=== PATIENT | male | born 1960 | race Caucasian/White ===

== ENCOUNTER 2017-12-27 14:14 | Inpatient (IN) | payer BC ==
[~2017-12-27] VITALS: Ht 170.2 cm; Wt 79.9 kg
[2017-12-27 16:30] VITALS: BP 138/93
[2017-12-27] MEDS ORDERED: ACETAMINOPHEN 325 MG TABLET. PO PRN (17:15)
[2017-12-27] MEDS ORDERED: CALCIUM CARBONATE 500 MG TAB.CHEW PO PRN (17:15)
[2017-12-27] MEDS ORDERED: MORPHINE SULFATE 2 MG/ML VIAL. IV PRN (17:15)
[2017-12-27] MEDS ORDERED: fentaNYL PF VIAL 100 MCG/2 ML VIAL IV PRN (17:15)
[2017-12-27] MEDS: POTASSIUM CL 40MEQ D5-0.45NACL 1,000 ML IV SCH (18:05)
[2017-12-27] MEDS: PANTOPRAZOLE IV PUSH 40 MG VIAL. IVP SCH (18:09)
[2017-12-27] MEDS: ONDANSETRON PF 4 MG/2 ML VIAL. IV PRN (18:17)
[2017-12-27 19:00] VITALS: BP 96/68
[2017-12-27] MEDS ORDERED: LISI1TAB7 PO (19:24)
[2017-12-27] MEDS ORDERED: ZOLP12.54 PO (19:24)
[2017-12-27 23:00] VITALS: BP 104/65
[2017-12-27] MEDS: ZOLPIDEM 5 MG TABLET. PO PRN (23:44)
[2017-12-27] MEDS: oxyCODONE IR 5 MG TABLET PO PRN (23:52)
[2017-12-28 03:00] VITALS: BP 117/77
[2017-12-28 05:23] LABS: BASO # 0.1 x10^3/uL (0.0-0.2); BASO % 1 % (0-3); EOS # 0.2 x10^3/uL (0.0-0.7); EOS % 2 % (0-3); HEMOGLOBIN 15.7 g/dL (13.0-17.5); LYMPH # 2.5 x10^3/uL (1.0-4.8); LYMPH % 25 % (24-48); MEAN CORPUSCULAR HEMOGLOBIN 30 pg (25-35); MEAN CORPUSCULAR HGB CONC 34 g/dL (31-37); MEAN CORPUSCULAR VOLUME 86 fL (79-100); MONO # 1.1 x10^3/uL (0.0-1.1); MONO % 11 % (0-9); NEUT % 61 % (31-73); PLATELET COUNT 299 x10^3/uL (140-400); RED BLOOD COUNT 5.33 x10^6/uL (4.30-5.70); RED CELL DISTRIBUTION WIDTH 13.6 % (11.5-14.5); WHITE BLOOD COUNT 9.7 x10^3/uL (4.0-11.0)
[2017-12-28 05:25] LABS: CALCIUM 9.3 mg/dL (8.5-10.1); GFR 76.7; POTASSIUM 3.8 mmol/L (3.5-5.1)
[2017-12-28 05:34] LABS: PROTHROMBIN TIME PATIENT 13.2 SEC (11.7-14.0)
[2017-12-28] MEDS: POTASSIUM CL 40MEQ D5-0.45NACL 1,000 ML IV SCH ×3 (05:35→23:30)
[2017-12-28 07:00] VITALS: BP 109/70
[2017-12-28] MEDS: PANTOPRAZOLE IV PUSH 40 MG VIAL. IVP SCH (08:44)
--- NOTE | 2017-12-28 09:01 | PDOC2 ---
MODESTO GENTILE ACTIVITIES COORDINATOR 12/28/17 0901: CONSULT Date of Consult Date of Consult DATE: 12/28/17 TIME: 08:54 Reason for Consult Reason for Consult: bowel obstruction Referring Physician Referring Physician: ER Identification/Chief Complaint Chief Complaint abdominal pain Source Source: Chart review, Patient History of Present Illness Reason for Visit: Reports Saturday had abdominal pain, bloating, and nausea. Last BM small on . Small amount of flatus now. No significant PO intake since . History of right colon resection, primary hernia repair. Long standing ventral hernia, typically does not cause any problems. Past Medical History Cardiovascular: HTN Heme/Onc: Cancer (skin) Past Surgical History Past Surgical History: Colon Resection Family History Family History: Other (noncontributory to current illness ) Social History No ALCOHOL: rare Drugs: None Lives: Alone Current Medications Current Medications Current Medications Potassium Chloride/Dextrose/ Sod Cl 1,000 ml @ 100 mls/hr Q10H IV Last administered on 12/28/17at 05:35; Start 12/27/17 at 17:30 Ondansetron HCl (Zofran) 4 mg PRN Q6HRS PRN IV NAUSEA/VOMITING, 1ST CHOICE Last administered on 12/27/17at 18:17; Start 12/27/17 at 17:15 Prochlorperazine Edisylate (Compazine) 10 mg PRN Q6HRS PRN IV NAUSEA/VOMITING, 2ND CHOICE; Start 12/27/17 at 17:15 Calcium Carbonate/ Glycine (Tums) 500 mg PRN Q3HRS PRN PO UPSET STOMACH; Start 12/27/17 at 17:15 Zolpidem Tartrate (Ambien) 5 mg PRN QHS PRN PO INSOMNIA, MAY REPEAT IN 1HR Last administered on 12/27/17at 23:44; Start 12/27/17 at 17:15 Oxycodone HCl (Roxicodone) 5 mg PRN Q3HRS PRN PO BREAKTHROUGH PAIN Last administered on 12/27/17at 23:52; Start 12/27/17 at 17:15 Morphine Sulfate (Morphine Sulfate) 2 mg PRN Q2HR PRN IV MODERATE PAIN Last administered on 12/28/17at 08:44; Start 12/27/17 at 17:15 Acetaminophen (Tylenol) 650 mg PRN Q6HRS PRN PO Headaches, Temp > 101.5F; Start 12/27/17 at 17:15 Pantoprazole Sodium (PROTONIX VIAL for IV PUSH) 40 mg DAILYAC IVP Last administered on 12/28/17at 08:44; Start 12/27/17 at 18:00 Fentanyl Citrate (Fentanyl 2ml Vial) 50 mcg PRN Q2HR PRN IV SEVERE PAIN Last administered on 12/27/17at 18:16; Start 12/27/17 at 17:15 Active Scripts Active Reported Lisinopril-Hctz 20-25 Mg Tab (Lisinopril/Hydrochlorothiazide) 1 Each Tablet 1 Tab PO DAILY Zolpidem Tartrate Er (Zolpidem Tartrate) 12.5 Mg Tab.mphase 1 Tab PO QHS Allergies Allergies: Coded Allergies: Sulfa (Sulfonamide Antibiotics) (Verified Allergy, Intermediate, Swelling , 12/27/17) TOPICAL ROS General: No: Chills, Other (fevers) PSYCHOLOGICAL ROS: No: Anxiety, Depression Eyes: No Blurry vision, No Double vision HEENT: No: Heacaches, Sore Throat Hematological and Lymphatic: No: Bleeding Problems, Blood Clots Respiratory: No: Cough, SOB with excertion Cardiovascular: No Chest Pain, No Palpitations Gastrointestinal: Yes Other (see hpi) Genitourinary: No Dysuria, No Retention Musculoskeletal: No Joint Pain, No Muscle Pain Neurological: No Impaired Coord/balance, No Memory Loss Skin: No Pruritus, No Rash Physical Exam General: Alert, Oriented X3, Cooperative, No acute distress HEENT: PERRLA, Mucous membr. moist/pink Lungs: Clear to auscultation, Normal air movement Heart: Regular rate, Normal S1, Normal S2, No murmurs Abdomen: Soft, Other (mildly tender, large VIH, partially reducible, large midline scar) Extremities: No clubbing, No cyanosis Skin: No rashes, No breakdown Neuro: Normal speech, Strength at 5/5 X4 ext Psych/Mental Status: Mental status NL, Mood NL MUSCULOSKELETAL: No joint tenderness, No deformity Vitals VITALS Vital Signs Date Time Temp Pulse Resp B/P (MAP) Pulse Ox O2 Delivery O2 Flow Rate FiO2 12/28/17 08:44 Room Air 12/28/17 07:00 97.9 70 16 109/70 (83) 93 97.9 Labs Labs Laboratory Tests Test 12/28/17 04:30 12/28/17 04:40 White Blood Count 9.7 x10^3/uL (4.0-11.0) Red Blood Count 5.33 x10^6/uL (4.30-5.70) Hemoglobin 15.7 g/dL (13.0-17.5) Hematocrit 46.0 % (39.0-53.0) Mean Corpuscular Volume 86 fL (79-100) Mean Corpuscular Hemoglobin 30 pg (25-35) Mean Corpuscular Hemoglobin Concent 34 g/dL (31-37) Red Cell Distribution Width 13.6 % (11.5-14.5) Platelet Count 299 x10^3/uL (140-400) Neutrophils (%) (Auto) 61 % (31-73) Lymphocytes (%) (Auto) 25 % (24-48) Monocytes (%) (Auto) 11 % (0-9) Eosinophils (%) (Auto) 2 % (0-3) Basophils (%) (Auto) 1 % (0-3) Neutrophils # (Auto) 6.0 x10^3uL (1.8-7.7) Lymphocytes # (Auto) 2.5 x10^3/uL (1.0-4.8) Monocytes # (Auto) 1.1 x10^3/uL (0.0-1.1) Eosinophils # (Auto) 0.2 x10^3/uL (0.0-0.7) Basophils # (Auto) 0.1 x10^3/uL (0.0-0.2) Prothrombin Time 13.2 SEC (11.7-14.0) Prothromb Time International Ratio 1.1 (0.8-1.1) Sodium Level 139 mmol/L (136-145) Potassium Level 3.8 mmol/L (3.5-5.1) Chloride Level 102 mmol/L (98-107) Carbon Dioxide Level 28 mmol/L (21-32) Anion Gap 9 (6-14) Blood Urea Nitrogen 11 mg/dL (8-26) Creatinine 1.0 mg/dL (0.7-1.3) Estimated GFR (Cockcroft-Gault) 76.7 Glucose Level 99 mg/dL (70-99) Calcium Level 9.3 mg/dL (8.5-10.1) Laboratory Tests Test 12/28/17 04:30 12/28/17 04:40 White Blood Count 9.7 x10^3/uL (4.0-11.0) Red Blood Count 5.33 x10^6/uL (4.30-5.70) Hemoglobin 15.7 g/dL (13.0-17.5) Hematocrit 46.0 % (39.0-53.0) Mean Corpuscular Volume 86 fL (79-100) Mean Corpuscular Hemoglobin 30 pg (25-35) Mean Corpuscular Hemoglobin Concent 34 g/dL (31-37) Red Cell Distribution Width 13.6 % (11.5-14.5) Platelet Count 299 x10^3/uL (140-400) Neutrophils (%) (Auto) 61 % (31-73) Lymphocytes (%) (Auto) 25 % (24-48) Monocytes (%) (Auto) 11 % (0-9) Eosinophils (%) (Auto) 2 % (0-3) Basophils (%) (Auto) 1 % (0-3) Neutrophils # (Auto) 6.0 x10^3uL (1.8-7.7) Lymphocytes # (Auto) 2.5 x10^3/uL (1.0-4.8) Monocytes # (Auto) 1.1 x10^3/uL (0.0-1.1) Eosinophils # (Auto) 0.2 x10^3/uL (0.0-0.7) Basophils # (Auto) 0.1 x10^3/uL (0.0-0.2) Prothrombin Time 13.2 SEC (11.7-14.0) Prothromb Time International Ratio 1.1 (0.8-1.1) Sodium Level 139 mmol/L (136-145) Potassium Level 3.8 mmol/L (3.5-5.1) Chloride Level 102 mmol/L (98-107) Carbon Dioxide Level 28 mmol/L (21-32) Anion Gap 9 (6-14) Blood Urea Nitrogen 11 mg/dL (8-26) Creatinine 1.0 mg/dL (0.7-1.3) Estimated GFR (Cockcroft-Gault) 76.7 Glucose Level 99 mg/dL (70-99) Calcium Level 9.3 mg/dL (8.5-10.1) Assessment/Plan Assessment/Plan abdominal pain bowel obstruction, Ct concern related to VIH d/w Dr Morrell, plans for surgery today IVONNE MORRELL MD 12/28/17 1703: CONSULT Assessment/Plan Assessment/Plan Pt seen and examined. Agree with Ms. Gentile's note Pt with one week history of abd pain, better now hernia able to be reduced at bedside d/w pt R/R/B/A of observation versus surgical repair. Pt favors surgery. R/B/A d/w pt. Risks, including, but not limited to: bleeding, infection, damage to surrounding structures, risk of anesthesia, risk of recurrence. He appears to understand, his questions are answered and he elects to proceed. Thanks for consult! MODESTO GENTILE APRN Dec 28, 2017 09:01 IVONNE MORRELL MD Dec 28, 2017 17:03
[2017-12-28] MEDS: ONDANSETRON PF 4 MG/2 ML VIAL. IV PRN (09:04)
[2017-12-28 11:00] VITALS: BP 112/74
--- NOTE | 2017-12-28 13:34 | HP ---
ADMIT DATE: 12/28/2017 CHIEF COMPLAINT: Abdominal pain. 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 Basically, he presented with abdominal pain. He went to [facility]. He had a CAT scan there apparently showing obstructive hernia. The patient has now been admitted here. I think the plan is for him to go to surgery this afternoon with Dr. Morrell. PAST MEDICAL HISTORY: Zeeshan-León syndrome with several abdominal surgeries. ALLERGIES: SULFA. FAMILY HISTORY: Hypertension. SOCIAL HISTORY: He is retired. He does not drink, smoke or take drugs. MEDICATIONS: Reviewed. Please refer to the MRAD. REVIEW OF SYSTEMS: GENERAL: No history of weight change, weakness or fevers. SKIN: No bruising, hair changes or rashes. EYES: No blurred, double or loss of vision. NOSE AND THROAT: No history of nosebleeds, hoarseness or sore throat. HEART: No history of palpitations, chest pain or shortness of breath on exertion. LUNGS: Denies cough, hemoptysis, wheezing or shortness of breath. GASTROINTESTINAL: He complains of abdominal pain. GENITOURINARY: No history of frequency, urgency, hesitancy or nocturia. NEUROLOGIC: Denies history of numbness, tingling, tremor or weakness. PSYCHIATRIC: No history of panic, anxiety or depression. ENDOCRINE: No history of heat or cold intolerance, polyuria or polydipsia. EXTREMITIES: Denies muscle weakness, joint pain, pain on walking or stiffness. PHYSICAL EXAMINATION: VITAL SIGNS: Temperature afebrile, pulse 80, respirations 18, blood pressure 109/70. GENERAL: He is alert, cooperative, very talkative. HEART: Normal S1, S2. LUNGS: Clear. ABDOMEN: Soft, distended and tender, multiple scars. ENDOCRINE: No thyromegaly. LYMPHATICS: No cervical nodes. HEMATOPOIETIC: No bruising. LABORATORY DATA: Hematology is normal. Electrolytes are normal. ASSESSMENT AND PLAN: Bowel obstruction and hernia. The patient has been admitted. We have consulted General Surgery. I believe he is scheduled for surgery this afternoon. For now, he is n.p.o., p.r.n. antiemetics, p.r.n. narcotics, IV fluids, home meds. COCO GOLDBERG DO DR: Buddy JOB#: [id number] / [id number]
[2017-12-28 15:00] VITALS: BP 115/78
[2017-12-28] MEDS ORDERED: BUPIVACAINE-EPI 0.5%-1:200000 50 ML VIAL. ONE (16:44)
[2017-12-28] MEDS ORDERED: SUCCINYLCHOLINE 200 MG/10 ML VIAL. ONE (16:55)
[2017-12-28] MEDS ORDERED: ROCURONIUM 50 MG/5 ML VIAL. ONE ×2 (16:55→19:31)
[2017-12-28] MEDS ORDERED: DEXAMETHASONE SOD PHOS 20 MG/5 ML VIAL. ONE (16:56)
[2017-12-28] MEDS ORDERED: ONDANSETRON PF 4 MG/2 ML VIAL. ONE (16:56)
[2017-12-28] MEDS ORDERED: ePHEDrine PF IN SALINE 50 MG/5 ML DISP.SYRIN IV ONE (16:56)
[2017-12-28] MEDS ORDERED: PHENYLEPHRINE in 0.9% NACL PF 1 MG/10 ML SYRINGE. IV ONE (16:56)
[2017-12-28] MEDS ORDERED: fentaNYL PF VIAL 100 MCG/2 ML VIAL ONE ×3 (16:58→21:09)
[2017-12-28] MEDS ORDERED: MIDAZOLAM HCL/PF 2 MG/2 ML VIAL. ONE (16:58)
[2017-12-28] MEDS ORDERED: GLYCOPYRROLATE 1 MG/5 ML VIAL. ONE (18:18)
[2017-12-28] MEDS ORDERED: NEOSTIGMINE METHYLSULFATE 5 MG/5 ML SYRINGE. ONE (18:18)
[2017-12-28] MEDS ORDERED: PROPOFOL 20 ML IV ONE (19:33)
[2017-12-28] MEDS ORDERED: ALBUMIN HUMAN 5% 500 ML IV ONE (20:27)
[2017-12-28] MEDS: DOCUSATE SODIUM 100 MG CAPSULE. PO SCH (21:00)
[2017-12-28] MEDS: ENOXAPARIN 40 MG/0.4 ML SYRINGE. SQ SCH (21:00)
[2017-12-28] MEDS ORDERED: IV RINGERS,LACTATED 1000ML 1,000 ML IV SCH ×2 (21:00→21:31)
[2017-12-28] MEDS ORDERED: NALOXONE 0.4 MG/ML VIAL. IV PRN (21:00)
[2017-12-28] MEDS ORDERED: IV NORMAL SALINE 1000ML BAG 1,000 ML IV SCH (21:00)
[2017-12-28] MEDS ORDERED: 0.9 % SODIUM CHLORIDE 10 ML DISP.SYRIN. IV PRN (21:00)
[2017-12-28] MEDS ORDERED: ONDANSETRON PF 4 MG/2 ML VIAL. IV PRN ×2 (21:00→21:45)
--- NOTE | 2017-12-28 21:10 | PDOC4 ---
OPERATIVE NOTE Date: Date: Dec 28, 2017 Pre-Op Diagnosis: Incarcerated ventral incisional hernia Post-Op Diagnosis: same Procedure Performed: Ventral incisional hernia, extensive lysis of adhesions Surgeon: Willian Licona Anesthesia Type: GETA Blood Loss: 300 Specimans Obtained: none Findings: Complex incisional hernia, extensive adhesions, previous right colon resection with large mesenteric defect, dilated proximal small bowel Complications: none Operative Note: After obtaining informed consent, patient was taken to OR, induced under GETA and prepped in the usual fashion. Previous scar was excised using cautery. Large hernia encountered and hernia sac entered. Extensive adhesion of the small bowel was noted into the complex hernia. An extensive lysis of adhesion was performed which was the vast majority of the operative time. Ultimately, the small bowel was explored. It was noted to be dilated proximally but decompressed distally. No injury was noted. Adhesiolysis resolved the obstruction. Evidence of previous right colectomy. Mesenteric defect was large and the stapled anastomosis was noted to be patent and functional, but appeared to with the immediately proximal small bowel coming through the defect. Attempts at rolling the bowel to line it up was unsuccessful. As such , the mesenteric defect could not be closed without revision of the anastomosis. Given the increased morbidity of this, and the complicating nature of the hernia, this was not in the patient best interest. Small bowel was returned to abdominal cavity with omentum overlying. Fascia repaired with 0 PDS. Allomax mesh was placed over this and tacked in place with 0 vicryl. Skin repaired with 0 vicryl, 3 0 vicryl 4 0 monocryl. Dressing applied. All counts correct. No immediate complications. Patient tolerated procedure well and sent to PACU in a stable condition. IVONNE LICONA MD Dec 28, 2017 21:10
[2017-12-28] MEDS: PROCHLORPERAZINE 10 MG/2 ML VIAL. IV PRN (21:27)
[2017-12-28] MEDS: MORPHINE SULFATE/PF 30 ML IV PRN (21:29)
[2017-12-28] MEDS: fentaNYL PF VIAL 100 MCG/2 ML VIAL IV PRN ×2 (21:34→22:04)
[2017-12-28] MEDS ORDERED: LIDOCAINE 1% PF 2 ML VIAL. ID PRN (21:45)
[2017-12-28] MEDS ORDERED: fentaNYL PF VIAL 100 MCG/2 ML VIAL IV PRN (21:45)
[2017-12-28] MEDS ORDERED: HYDROmorphone 2 MG/ML VIAL IV PRN (21:45)
[2017-12-28] MEDS ORDERED: PROCHLORPERAZINE 10 MG/2 ML VIAL. IV PRN (21:45)
[2017-12-28] MEDS ORDERED: MORPHINE SULFATE 2 MG/ML VIAL. IV PRN (21:45)
[2017-12-28 23:00] VITALS: BP 122/71
[2017-12-29 03:00] VITALS: BP 116/67
[2017-12-29 06:25] LABS: BASO % 0 % (0-3); EOS % 0 % (0-3); HEMATOCRIT 40.7 % (39.0-53.0); HEMOGLOBIN 13.7 g/dL (13.0-17.5); LYMPH # 0.4 x10^3/uL (1.0-4.8); LYMPH % 3 % (24-48); MEAN CORPUSCULAR HEMOGLOBIN 29 pg (25-35); MEAN CORPUSCULAR HGB CONC 34 g/dL (31-37); MEAN CORPUSCULAR VOLUME 87 fL (79-100); MONO # 1.6 x10^3/uL (0.0-1.1); MONO % 12 % (0-9); NEUT % 85 % (31-73); PLATELET COUNT 242 x10^3/uL (140-400); RED BLOOD COUNT 4.69 x10^6/uL (4.30-5.70); RED CELL DISTRIBUTION WIDTH 13.4 % (11.5-14.5)
[2017-12-29 06:41] LABS: CALCIUM 8.5 mg/dL (8.5-10.1); CREATININE 0.9 mg/dL (0.7-1.3); GFR 86.7; POTASSIUM 4.5 mmol/L (3.5-5.1)
[2017-12-29 07:00] VITALS: BP 119/48
--- NOTE | 2017-12-29 07:25 | RAD ---
EXAM: Abdomen, single view. HISTORY: Abdominal surgery. COMPARISON: CT dated 12/26/2017. FINDINGS: Frontal views of the abdomen are obtained. There is contrast within the colon. There is colonic diverticulosis. There are dilated air-filled loops of bowel within the left abdomen. No clear transition point is seen. There is a nasogastric tube within the stomach. There is bilateral lower lobe atelectasis or infiltrate. There are degenerative changes throughout the spine. IMPRESSION: 1. Distended air-filled small bowel within the left abdomen. This may be due to postoperative ileus or persistent partial obstruction. 2. Transit of contrast into the colon. There is colonic diverticulosis. 3. Nasogastric tube within the stomach. 4. Bilateral lower lobe atelectasis or infiltrate. Electronically signed by: Cristina Epstein MD (12/29/2017 7:21 AM) [id number]
[2017-12-29] MEDS: DOCUSATE SODIUM 100 MG CAPSULE. PO SCH ×2 (08:08→21:00)
--- NOTE | 2017-12-29 08:41 | PDOC ---
SURGICAL PROGRESS NOTE Subjective resting sore no flatus Vital Signs Vital Signs Date Time Temp Pulse Resp B/P (MAP) Pulse Ox O2 Delivery O2 Flow Rate FiO2 12/29/17 03:00 98.1 94 18 116/67 (83) 92 Room Air 98.1 12/28/17 22:30 2 I&O Intake and Output 12/29/17 07:00 Intake Total 4260 ml Output Total 805 ml Balance 3455 ml Intake Oral 0 ml IV Total 4260 ml Output Urine Total 705 ml Gastric Drainage Total 100 ml General: Alert, Oriented X3, Cooperative, No acute distress HEENT: Other (ng bilious) Abdomen: Soft, Other (ND, dressing dry) Labs Laboratory Tests Test 12/28/17 04:30 12/28/17 04:40 12/29/17 05:30 White Blood Count 9.7 x10^3/uL (4.0-11.0) 14.0 x10^3/uL (4.0-11.0) Red Blood Count 5.33 x10^6/uL (4.30-5.70) 4.69 x10^6/uL (4.30-5.70) Hemoglobin 15.7 g/dL (13.0-17.5) 13.7 g/dL (13.0-17.5) Hematocrit 46.0 % (39.0-53.0) 40.7 % (39.0-53.0) Mean Corpuscular Volume 86 fL (79-100) 87 fL (79-100) Mean Corpuscular Hemoglobin 30 pg (25-35) 29 pg (25-35) Mean Corpuscular Hemoglobin Concent 34 g/dL (31-37) 34 g/dL (31-37) Red Cell Distribution Width 13.6 % (11.5-14.5) 13.4 % (11.5-14.5) Platelet Count 299 x10^3/uL (140-400) 242 x10^3/uL (140-400) Neutrophils (%) (Auto) 61 % (31-73) 85 % (31-73) Lymphocytes (%) (Auto) 25 % (24-48) 3 % (24-48) Monocytes (%) (Auto) 11 % (0-9) 12 % (0-9) Eosinophils (%) (Auto) 2 % (0-3) 0 % (0-3) Basophils (%) (Auto) 1 % (0-3) 0 % (0-3) Neutrophils # (Auto) 6.0 x10^3uL (1.8-7.7) 12.0 x10^3uL (1.8-7.7) Lymphocytes # (Auto) 2.5 x10^3/uL (1.0-4.8) 0.4 x10^3/uL (1.0-4.8) Monocytes # (Auto) 1.1 x10^3/uL (0.0-1.1) 1.6 x10^3/uL (0.0-1.1) Eosinophils # (Auto) 0.2 x10^3/uL (0.0-0.7) 0.0 x10^3/uL (0.0-0.7) Basophils # (Auto) 0.1 x10^3/uL (0.0-0.2) 0.0 x10^3/uL (0.0-0.2) Prothrombin Time 13.2 SEC (11.7-14.0) Prothromb Time International Ratio 1.1 (0.8-1.1) Sodium Level 139 mmol/L (136-145) 137 mmol/L (136-145) Potassium Level 3.8 mmol/L (3.5-5.1) 4.5 mmol/L (3.5-5.1) Chloride Level 102 mmol/L (98-107) 101 mmol/L (98-107) Carbon Dioxide Level 28 mmol/L (21-32) 29 mmol/L (21-32) Anion Gap 9 (6-14) 7 (6-14) Blood Urea Nitrogen 11 mg/dL (8-26) 11 mg/dL (8-26) Creatinine 1.0 mg/dL (0.7-1.3) 0.9 mg/dL (0.7-1.3) Estimated GFR (Cockcroft-Gault) 76.7 86.7 Glucose Level 99 mg/dL (70-99) 129 mg/dL (70-99) Calcium Level 9.3 mg/dL (8.5-10.1) 8.5 mg/dL (8.5-10.1) Laboratory Tests Test 12/29/17 05:30 White Blood Count 14.0 x10^3/uL (4.0-11.0) Red Blood Count 4.69 x10^6/uL (4.30-5.70) Hemoglobin 13.7 g/dL (13.0-17.5) Hematocrit 40.7 % (39.0-53.0) Mean Corpuscular Volume 87 fL (79-100) Mean Corpuscular Hemoglobin 29 pg (25-35) Mean Corpuscular Hemoglobin Concent 34 g/dL (31-37) Red Cell Distribution Width 13.4 % (11.5-14.5) Platelet Count 242 x10^3/uL (140-400) Neutrophils (%) (Auto) 85 % (31-73) Lymphocytes (%) (Auto) 3 % (24-48) Monocytes (%) (Auto) 12 % (0-9) Eosinophils (%) (Auto) 0 % (0-3) Basophils (%) (Auto) 0 % (0-3) Neutrophils # (Auto) 12.0 x10^3uL (1.8-7.7) Lymphocytes # (Auto) 0.4 x10^3/uL (1.0-4.8) Monocytes # (Auto) 1.6 x10^3/uL (0.0-1.1) Eosinophils # (Auto) 0.0 x10^3/uL (0.0-0.7) Basophils # (Auto) 0.0 x10^3/uL (0.0-0.2) Sodium Level 137 mmol/L (136-145) Potassium Level 4.5 mmol/L (3.5-5.1) Chloride Level 101 mmol/L (98-107) Carbon Dioxide Level 29 mmol/L (21-32) Anion Gap 7 (6-14) Blood Urea Nitrogen 11 mg/dL (8-26) Creatinine 0.9 mg/dL (0.7-1.3) Estimated GFR (Cockcroft-Gault) 86.7 Glucose Level 129 mg/dL (70-99) Calcium Level 8.5 mg/dL (8.5-10.1) Assessment/Plan s/p VIH, LAVONNE continue NG today start activity MODESTO GENTILE APRN Dec 29, 2017 08:41
[2017-12-29] MEDS: PANTOPRAZOLE IV PUSH 40 MG VIAL. IVP SCH (09:48)
[2017-12-29] MEDS: POTASSIUM CL 40MEQ D5-0.45NACL 1,000 ML IV SCH ×2 (09:56→21:35)
[2017-12-29 11:00] VITALS: BP 118/76
--- NOTE | 2017-12-29 14:13 | PDOC ---
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 seen and examined Pt. alert and oriented; good affect VSS NG tube to low, intermittent suction Ventral dressing clean, dry and intact Pt. on HOME AIDE Vitals Vitals Vital Signs Date Time Temp Pulse Resp B/P (MAP) Pulse Ox O2 Delivery O2 Flow Rate FiO2 12/29/17 11:00 97.7 102 18 118/76 (90) 93 Room Air 97.7 12/28/17 22:30 2 Physical Exam General: Alert, Oriented X3, Cooperative, No acute distress Heart: Regular rate, Normal S1, Normal S2, No murmurs Lungs: Clear Abdomen: Soft, Other (ND, dressing dry) Extremities: No clubbing, No cyanosis Skin: No rashes, No breakdown Labs LABS Laboratory Tests Test 12/29/17 05:30 White Blood Count 14.0 x10^3/uL (4.0-11.0) Red Blood Count 4.69 x10^6/uL (4.30-5.70) Hemoglobin 13.7 g/dL (13.0-17.5) Hematocrit 40.7 % (39.0-53.0) Mean Corpuscular Volume 87 fL (79-100) Mean Corpuscular Hemoglobin 29 pg (25-35) Mean Corpuscular Hemoglobin Concent 34 g/dL (31-37) Red Cell Distribution Width 13.4 % (11.5-14.5) Platelet Count 242 x10^3/uL (140-400) Neutrophils (%) (Auto) 85 % (31-73) Lymphocytes (%) (Auto) 3 % (24-48) Monocytes (%) (Auto) 12 % (0-9) Eosinophils (%) (Auto) 0 % (0-3) Basophils (%) (Auto) 0 % (0-3) Neutrophils # (Auto) 12.0 x10^3uL (1.8-7.7) Lymphocytes # (Auto) 0.4 x10^3/uL (1.0-4.8) Monocytes # (Auto) 1.6 x10^3/uL (0.0-1.1) Eosinophils # (Auto) 0.0 x10^3/uL (0.0-0.7) Basophils # (Auto) 0.0 x10^3/uL (0.0-0.2) Sodium Level 137 mmol/L (136-145) Potassium Level 4.5 mmol/L (3.5-5.1) Chloride Level 101 mmol/L (98-107) Carbon Dioxide Level 29 mmol/L (21-32) Anion Gap 7 (6-14) Blood Urea Nitrogen 11 mg/dL (8-26) Creatinine 0.9 mg/dL (0.7-1.3) Estimated GFR (Cockcroft-Gault) 86.7 Glucose Level 129 mg/dL (70-99) Calcium Level 8.5 mg/dL (8.5-10.1) Review of Systems Review of Systems C/O pain C/O weakness Assessment and Plan Assessmemt and Plan CC: Small bowel obstruction, obstructive hernia Assessment: Small bowel obstruction, 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 surgeries Sulfa allergy Plan: Wound care PT/OT Monitor labs Home meds Continue maintenance IV 1/2NS Continue HOME AIDE Continue current diet Comment Review of Relevant I have reviewed the following items henna (where applicable) has been applied. Labs Laboratory Tests Test 12/28/17 04:30 12/28/17 04:40 12/29/17 05:30 White Blood Count 9.7 x10^3/uL (4.0-11.0) 14.0 x10^3/uL (4.0-11.0) Red Blood Count 5.33 x10^6/uL (4.30-5.70) 4.69 x10^6/uL (4.30-5.70) Hemoglobin 15.7 g/dL (13.0-17.5) 13.7 g/dL (13.0-17.5) Hematocrit 46.0 % (39.0-53.0) 40.7 % (39.0-53.0) Mean Corpuscular Volume 86 fL (79-100) 87 fL (79-100) Mean Corpuscular Hemoglobin 30 pg (25-35) 29 pg (25-35) Mean Corpuscular Hemoglobin Concent 34 g/dL (31-37) 34 g/dL (31-37) Red Cell Distribution Width 13.6 % (11.5-14.5) 13.4 % (11.5-14.5) Platelet Count 299 x10^3/uL (140-400) 242 x10^3/uL (140-400) Neutrophils (%) (Auto) 61 % (31-73) 85 % (31-73) Lymphocytes (%) (Auto) 25 % (24-48) 3 % (24-48) Monocytes (%) (Auto) 11 % (0-9) 12 % (0-9) Eosinophils (%) (Auto) 2 % (0-3) 0 % (0-3) Basophils (%) (Auto) 1 % (0-3) 0 % (0-3) Neutrophils # (Auto) 6.0 x10^3uL (1.8-7.7) 12.0 x10^3uL (1.8-7.7) Lymphocytes # (Auto) 2.5 x10^3/uL (1.0-4.8) 0.4 x10^3/uL (1.0-4.8) Monocytes # (Auto) 1.1 x10^3/uL (0.0-1.1) 1.6 x10^3/uL (0.0-1.1) Eosinophils # (Auto) 0.2 x10^3/uL (0.0-0.7) 0.0 x10^3/uL (0.0-0.7) Basophils # (Auto) 0.1 x10^3/uL (0.0-0.2) 0.0 x10^3/uL (0.0-0.2) Prothrombin Time 13.2 SEC (11.7-14.0) Prothromb Time International Ratio 1.1 (0.8-1.1) Sodium Level 139 mmol/L (136-145) 137 mmol/L (136-145) Potassium Level 3.8 mmol/L (3.5-5.1) 4.5 mmol/L (3.5-5.1) Chloride Level 102 mmol/L (98-107) 101 mmol/L (98-107) Carbon Dioxide Level 28 mmol/L (21-32) 29 mmol/L (21-32) Anion Gap 9 (6-14) 7 (6-14) Blood Urea Nitrogen 11 mg/dL (8-26) 11 mg/dL (8-26) Creatinine 1.0 mg/dL (0.7-1.3) 0.9 mg/dL (0.7-1.3) Estimated GFR (Cockcroft-Gault) 76.7 86.7 Glucose Level 99 mg/dL (70-99) 129 mg/dL (70-99) Calcium Level 9.3 mg/dL (8.5-10.1) 8.5 mg/dL (8.5-10.1) Laboratory Tests Test 12/29/17 05:30 White Blood Count 14.0 x10^3/uL (4.0-11.0) Red Blood Count 4.69 x10^6/uL (4.30-5.70) Hemoglobin 13.7 g/dL (13.0-17.5) Hematocrit 40.7 % (39.0-53.0) Mean Corpuscular Volume 87 fL (79-100) Mean Corpuscular Hemoglobin 29 pg (25-35) Mean Corpuscular Hemoglobin Concent 34 g/dL (31-37) Red Cell Distribution Width 13.4 % (11.5-14.5) Platelet Count 242 x10^3/uL (140-400) Neutrophils (%) (Auto) 85 % (31-73) Lymphocytes (%) (Auto) 3 % (24-48) Monocytes (%) (Auto) 12 % (0-9) Eosinophils (%) (Auto) 0 % (0-3) Basophils (%) (Auto) 0 % (0-3) Neutrophils # (Auto) 12.0 x10^3uL (1.8-7.7) Lymphocytes # (Auto) 0.4 x10^3/uL (1.0-4.8) Monocytes # (Auto) 1.6 x10^3/uL (0.0-1.1) Eosinophils # (Auto) 0.0 x10^3/uL (0.0-0.7) Basophils # (Auto) 0.0 x10^3/uL (0.0-0.2) Sodium Level 137 mmol/L (136-145) Potassium Level 4.5 mmol/L (3.5-5.1) Chloride Level 101 mmol/L (98-107) Carbon Dioxide Level 29 mmol/L (21-32) Anion Gap 7 (6-14) Blood Urea Nitrogen 11 mg/dL (8-26) Creatinine 0.9 mg/dL (0.7-1.3) Estimated GFR (Cockcroft-Gault) 86.7 Glucose Level 129 mg/dL (70-99) Calcium Level 8.5 mg/dL (8.5-10.1) Medications Current Medications Potassium Chloride/Dextrose/ Sod Cl 1,000 ml @ 100 mls/hr Q10H IV Last administered on 12/29/17at 09:56; Start 12/27/17 at 17:30 Ondansetron HCl (Zofran) 4 mg PRN Q6HRS PRN IV NAUSEA/VOMITING, 1ST CHOICE Last administered on 12/28/17 09:04; Start 12/27/17 at 17:15; Stop 12/28/17 at 21:00; Status DC Prochlorperazine Edisylate (Compazine) 10 mg PRN Q6HRS PRN IV NAUSEA/VOMITING, 2ND CHOICE Last administered on 12/28/17at 21:27; Start 12/27/17 at 17:15 Calcium Carbonate/ Glycine (Tums) 500 mg PRN Q3HRS PRN PO UPSET STOMACH; Start 12/27/17 at 17:15 Zolpidem Tartrate (Ambien) 5 mg PRN QHS PRN PO INSOMNIA, MAY REPEAT IN 1HR Last administered on 12/27/17at 23:44; Start 12/27/17 at 17:15 Oxycodone HCl (Roxicodone) 5 mg PRN Q3HRS PRN PO BREAKTHROUGH PAIN Last administered on 12/27/17at 23:52; Start 12/27/17 at 17:15 Morphine Sulfate (Morphine Sulfate) 2 mg PRN Q2HR PRN IV MODERATE PAIN Last administered on 12/28/17at 08:44; Start 12/27/17 at 17:15; Stop 12/28/17 at 21:00 ; Status DC Acetaminophen (Tylenol) 650 mg PRN Q6HRS PRN PO Headaches, Temp > 101.5F; Start 12/27/17 at 17:15 Pantoprazole Sodium (PROTONIX VIAL for IV PUSH) 40 mg DAILYAC IVP Last administered on 12/29/17at 09:48; Start 12/27/17 at 18:00 Fentanyl Citrate (Fentanyl 2ml Vial) 50 mcg PRN Q2HR PRN IV SEVERE PAIN Last administered on 12/27/17at 18:16; Start 12/27/17 at 17:15; Stop 12/28/17 at 21:01 ; Status DC Succinylcholine Chloride (Anectine) 200 mg STK-MED ONCE .ROUTE ; Start 12/28/17 at 16:55; Stop 12/28/17 at 16:56; Status DC Rocuronium [place] (Zemuron) 50 mg STK-MED ONCE .ROUTE ; Start 12/28/17 at 16:55 ; Stop 12/28/17 at 16:56; Status DC Dexamethasone Sodium Phosphate (Decadron) 20 mg STK-MED ONCE .ROUTE ; Start at 16:56; Stop 12/28/17 at 16:57; Status DC Ondansetron HCl (Zofran) 4 mg STK-MED ONCE .ROUTE ; Start 12/28/17 at 16:56; Stop 12/28/17 at 16:57; Status DC Phenylephrine HCl (PHENYLEPHRINE in 0.9% NACL PF) 1 mg STK-MED ONCE IV ; Start 12/28/17 at 16:56; Stop 12/28/17 at 16:57; Status DC Ephedrine Sulfate (ePHEDrine PF IN SALINE SYRINGE) 50 mg STK-MED ONCE IV ; Start 12/28/17 at 16:56; Stop 12/28/17 at 16:57; Status DC Fentanyl Citrate (Fentanyl 2ml Vial) 100 mcg STK-MED ONCE .ROUTE ; Start at 16:58; Stop 12/28/17 at 16:59; Status DC Midazolam HCl (Versed) 2 mg STK-MED ONCE .ROUTE ; Start 12/28/17 at 16:58; Stop 12/28/17 at 16:59; Status DC Cefazolin Sodium/ Dextrose 50 ml @ 100 mls/hr 1X PERIOP IV Last administered on 12/28/17at 18:23; Start 12/28/17 at 17:00; Stop 12/28/17 at 23:59; Status DC Bupivacaine HCl/ Epinephrine Bitart (Marcaine-Epi 0.5%-1:[id number]) 50 ml STK-MED ONCE .ROUTE ; Start 12/28/17 at 16:44; Stop 12/28/17 at 17:45; Status DC Glycopyrrolate (Robinul) 1 mg STK-MED ONCE .ROUTE ; Start 12/28/17 at 18:18; Stop 12/28/17 at 18:19; Status DC Neostigmine Methylsulfate (Neostigmine Methylsulfate) 5 mg STK-MED ONCE .ROUTE ; Start 12/28/17 at 18:18; Stop 12/28/17 at 18:19; Status DC Fentanyl Citrate (Fentanyl 2ml Vial) 100 mcg STK-MED ONCE .ROUTE ; Start at 18:18; Stop 12/28/17 at 18:19; Status DC Rocuronium [place] (Zemuron) 50 mg STK-MED ONCE .ROUTE ; Start 12/28/17 at 19:31 ; Stop 12/28/17 at 19:32; Status DC Propofol 20 ml @ As Directed STK-MED ONCE IV ; Start 12/28/17 at 19:33; Stop at 19:34; Status DC Albumin Human 500 ml @ As Directed STK-MED ONCE IV ; Start 12/28/17 at 20:27; Stop 12/28/17 at 20:28; Status DC Enoxaparin Sodium (Lovenox 40mg Syringe) 40 mg Q24H SQ ; Start 12/28/17 at 21:00 Sodium Chloride (Normal Saline Flush) 3 ml QSHIFT PRN IV AFTER MEDS AND BLOOD DRAWS; Start 12/28/17 at 21:00 Ringer's Solution 1,000 ml @ 100 mls/hr Q10H IV Last administered on at 21:27; Start 12/28/17 at 21:00; Stop 12/28/17 at 23:53; Status DC Naloxone HCl (Narcan) 0.4 mg PRN Q2MIN PRN IV SEE INSTRUCTIONS; Start 12/28/17 at 21:00 Sodium Chloride 1,000 ml @ 25 mls/hr Q24H IV ; Start 12/28/17 at 21:00; Stop at 21:01; Status DC Morphine Sulfate 30 ml @ 0 mls/hr CONT PRN PRN IV PER PROTOCOL Last administered on 12/28/17at 21:29; Start 12/28/17 at 21:00 Docusate Sodium (Colace) 100 mg BID PO ; Start 12/28/17 at 21:00 Ondansetron HCl (Zofran) 4 mg PRN Q6HRS PRN IV NAUESA, 1ST CHOICE; Start at 21:00 Fentanyl Citrate (Fentanyl 2ml Vial) 100 mcg STK-MED ONCE .ROUTE ; Start at 21:09; Stop 12/28/17 at 21:10; Status DC Ondansetron HCl (Zofran) 4 mg PRN Q6HRS PRN IV NAUSEA/VOMITING; Start 12/28/17 at 21:45; Stop 12/29/17 at 21:44 Fentanyl Citrate (Fentanyl 2ml Vial) 25 mcg PRN Q5MIN PRN IV MILD PAIN; Start 12/28/17 at 21:45; Stop 12/29/17 at 21:44 Fentanyl Citrate (Fentanyl 2ml Vial) 50 mcg PRN Q5MIN PRN IV MODERATE TO SEVERE PAIN Last administered on 12/28/17at 22:04; Start 12/28/17 at 21:45; Stop 12/29/17 at 21:44 Morphine Sulfate (Morphine Sulfate) 1 mg PRN Q10MIN PRN IV SEVERE PAIN; Start 12/28/17 at 21:45; Stop 12/29/17 at 21:44 Ringer's Solution 1,000 ml @ 30 mls/hr Q24H IV Last administered on 12/28/17at 22:35; Start 12/28/17 at 21:31; Stop 12/29/17 at 09:30; Status DC Lidocaine HCl (Xylocaine-Mpf 1% 2ml Vial) 2 ml PRN 1X PRN ID PRIOR TO IV START ; Start 12/28/17 at 21:45; Stop 12/29/17 at 21:44 Hydromorphone HCl (Dilaudid) 0.5 mg PRN Q10MIN PRN IV SEV PAIN, Second choice; Start 12/28/17 at 21:45; Stop 12/29/17 at 21:44 Prochlorperazine Edisylate (Compazine) 5 mg PACU PRN PRN IV NAUSEA, MRX1; Start 12/28/17 at 21:45; Stop 12/29/17 at 21:44 Active Scripts Active Reported Lisinopril-Hctz 20-25 Mg Tab (Lisinopril/Hydrochlorothiazide) 1 Each Tablet 1 Tab PO DAILY Zolpidem Tartrate Er (Zolpidem Tartrate) 12.5 Mg Tab.mphase 1 Tab PO QHS Vitals/I & O Vital Sign - Last 24 Hours 12/28/17 12/28/17 12/28/17 12/28/17 15:00 19:32 21:04 21:19 Temp 96.4 96.4 Pulse 70 78 84 Resp 20 20 20 B/P (MAP) 115/78 (90) 133/75 150/80 Pulse Ox 93 99 96 O2 Delivery Room Air in OR Nasal Cannula Simple Mask O2 Flow Rate 2 10 12/28/17 12/28/17 12/28/17 12/28/17 21:19 21:29 21:34 21:34 Pulse 84 Resp 20 20 22 B/P (MAP) 141/76 Pulse Ox 96 99 96 O2 Delivery Mask Simple Mask Simple Mask O2 Flow Rate 10 10.0 10 12/28/17 12/28/17 12/28/17 12/28/17 21:49 21:59 22:04 22:04 Pulse 102 78 Resp 20 20 20 B/P (MAP) 134/81 122/78 Pulse Ox 98 98 O2 Delivery Simple Mask clearing for PACU Nasal Cannula Nasal Cannula O2 Flow Rate 10 2 2.0 12/28/17 12/28/17 12/28/17 12/28/17 22:19 22:30 22:34 22:35 Temp 97.5 97.5 Pulse 85 Resp 20 B/P (MAP) 125/75 Pulse Ox 98 O2 Delivery Nasal Cannula Nasal Cannula clearing for PACU Room Air O2 Flow Rate 2 2 12/28/17 12/29/17 12/29/17 12/29/17 23:00 03:00 07:00 11:00 Temp 98.1 98.9 97.7 98.1 98.9 97.7 Pulse 105 94 63 102 Resp 20 18 18 18 B/P (MAP) 122/71 (88) 116/67 (83) 119/48 (71) 118/76 (90) Pulse Ox 94 92 95 93 O2 Delivery Room Air Room Air Room Air Room Air Intake and Output 12/28/17 12/28/17 12/29/17 15:00 23:00 07:00 Intake Total 3550 ml 710 ml Output Total 300 ml 505 ml Balance 3250 ml 205 ml COCO GOLDBERG III DO Dec 29, 2017 14:13
[2017-12-29 15:00] VITALS: BP 119/68
[2017-12-29] MEDS: MORPHINE SULFATE/PF 30 ML IV PRN (15:50)
[2017-12-29 19:00] VITALS: BP 131/77
[2017-12-29] MEDS ORDERED: PHENOL ORAL SPRAY 177ML BOTTLE. PO PRN (21:15)
[2017-12-29] MEDS: ENOXAPARIN 40 MG/0.4 ML SYRINGE. SQ SCH (21:34)
[2017-12-29 23:07] VITALS: BP 125/82
[2017-12-30] MEDS: PROCHLORPERAZINE 10 MG/2 ML VIAL. IV PRN (01:32)
[2017-12-30 03:06] VITALS: BP 131/76
[2017-12-30] MEDS: MORPHINE SULFATE/PF 30 ML IV PRN (03:17)
[2017-12-30] MEDS: POTASSIUM CL 40MEQ D5-0.45NACL 1,000 ML IV SCH ×2 (06:39→16:29)
[2017-12-30 07:00] VITALS: BP 124/75
[2017-12-30 08:30] LABS: BASO # 0.1 x10^3/uL (0.0-0.2); BASO % 1 % (0-3); EOS # 0.1 x10^3/uL (0.0-0.7); EOS % 1 % (0-3); HEMATOCRIT 38.6 % (39.0-53.0); LYMPH % 9 % (24-48); MEAN CORPUSCULAR HEMOGLOBIN 29 pg (25-35); MEAN CORPUSCULAR HGB CONC 34 g/dL (31-37); MEAN CORPUSCULAR VOLUME 87 fL (79-100); MONO # 1.7 x10^3/uL (0.0-1.1); MONO % 14 % (0-9); NEUT # 8.8 x10^3uL (1.8-7.7); NEUT % 76 % (31-73); PLATELET COUNT 237 x10^3/uL (140-400); RED BLOOD COUNT 4.45 x10^6/uL (4.30-5.70); RED CELL DISTRIBUTION WIDTH 13.6 % (11.5-14.5); WHITE BLOOD COUNT 11.6 x10^3/uL (4.0-11.0)
[2017-12-30 08:50] LABS: GFR 76.7; POTASSIUM 4.1 mmol/L (3.5-5.1)
[2017-12-30] MEDS: DOCUSATE SODIUM 100 MG CAPSULE. PO SCH ×2 (09:00→21:22)
[2017-12-30] MEDS: PANTOPRAZOLE IV PUSH 40 MG VIAL. IVP SCH (10:18)
[2017-12-30 11:00] VITALS: BP 146/81
--- NOTE | 2017-12-30 11:36 | PDOC ---
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 seen and examined Pt. alert and oriented; good affect VSS NG tube clamped Ventral dressing clean, dry and intact Pt. on CEO ZIFF DAVIS , pt still use it often no flatus, no BM post op has mild nausea Vitals Vitals Vital Signs Date Time Temp Pulse Resp B/P (MAP) Pulse Ox O2 Delivery O2 Flow Rate FiO2 12/30/17 07:00 98.0 110 124/75 (91) 89 Room Air 98.0 12/30/17 03:47 20 12/29/17 15:50 2.0 Physical Exam General: Alert, Oriented X3, Cooperative, No acute distress Heart: Regular rate, Normal S1, Normal S2, No murmurs Lungs: Clear Abdomen: Soft, Other (clean abd dressing. mild tenderness. no BS.) Extremities: No clubbing, No cyanosis Skin: No rashes, No breakdown Labs LABS Laboratory Tests Test 12/30/17 07:50 White Blood Count 11.6 x10^3/uL (4.0-11.0) Red Blood Count 4.45 x10^6/uL (4.30-5.70) Hemoglobin 13.0 g/dL (13.0-17.5) Hematocrit 38.6 % (39.0-53.0) Mean Corpuscular Volume 87 fL (79-100) Mean Corpuscular Hemoglobin 29 pg (25-35) Mean Corpuscular Hemoglobin Concent 34 g/dL (31-37) Red Cell Distribution Width 13.6 % (11.5-14.5) Platelet Count 237 x10^3/uL (140-400) Neutrophils (%) (Auto) 76 % (31-73) Lymphocytes (%) (Auto) 9 % (24-48) Monocytes (%) (Auto) 14 % (0-9) Eosinophils (%) (Auto) 1 % (0-3) Basophils (%) (Auto) 1 % (0-3) Neutrophils # (Auto) 8.8 x10^3uL (1.8-7.7) Lymphocytes # (Auto) 1.0 x10^3/uL (1.0-4.8) Monocytes # (Auto) 1.7 x10^3/uL (0.0-1.1) Eosinophils # (Auto) 0.1 x10^3/uL (0.0-0.7) Basophils # (Auto) 0.1 x10^3/uL (0.0-0.2) Sodium Level 136 mmol/L (136-145) Potassium Level 4.1 mmol/L (3.5-5.1) Chloride Level 102 mmol/L (98-107) Carbon Dioxide Level 28 mmol/L (21-32) Anion Gap 6 (6-14) Blood Urea Nitrogen 9 mg/dL (8-26) Creatinine 1.0 mg/dL (0.7-1.3) Estimated GFR (Cockcroft-Gault) 76.7 Glucose Level 132 mg/dL (70-99) Calcium Level 8.0 mg/dL (8.5-10.1) Comment Review of Relevant I have reviewed the following items henna (where applicable) has been applied. Labs Laboratory Tests Test 12/29/17 05:30 12/30/17 07:50 White Blood Count 14.0 x10^3/uL (4.0-11.0) 11.6 x10^3/uL (4.0-11.0) Red Blood Count 4.69 x10^6/uL (4.30-5.70) 4.45 x10^6/uL (4.30-5.70) Hemoglobin 13.7 g/dL (13.0-17.5) 13.0 g/dL (13.0-17.5) Hematocrit 40.7 % (39.0-53.0) 38.6 % (39.0-53.0) Mean Corpuscular Volume 87 fL (79-100) 87 fL (79-100) Mean Corpuscular Hemoglobin 29 pg (25-35) 29 pg (25-35) Mean Corpuscular Hemoglobin Concent 34 g/dL (31-37) 34 g/dL (31-37) Red Cell Distribution Width 13.4 % (11.5-14.5) 13.6 % (11.5-14.5) Platelet Count 242 x10^3/uL (140-400) 237 x10^3/uL (140-400) Neutrophils (%) (Auto) 85 % (31-73) 76 % (31-73) Lymphocytes (%) (Auto) 3 % (24-48) 9 % (24-48) Monocytes (%) (Auto) 12 % (0-9) 14 % (0-9) Eosinophils (%) (Auto) 0 % (0-3) 1 % (0-3) Basophils (%) (Auto) 0 % (0-3) 1 % (0-3) Neutrophils # (Auto) 12.0 x10^3uL (1.8-7.7) 8.8 x10^3uL (1.8-7.7) Lymphocytes # (Auto) 0.4 x10^3/uL (1.0-4.8) 1.0 x10^3/uL (1.0-4.8) Monocytes # (Auto) 1.6 x10^3/uL (0.0-1.1) 1.7 x10^3/uL (0.0-1.1) Eosinophils # (Auto) 0.0 x10^3/uL (0.0-0.7) 0.1 x10^3/uL (0.0-0.7) Basophils # (Auto) 0.0 x10^3/uL (0.0-0.2) 0.1 x10^3/uL (0.0-0.2) Sodium Level 137 mmol/L (136-145) 136 mmol/L (136-145) Potassium Level 4.5 mmol/L (3.5-5.1) 4.1 mmol/L (3.5-5.1) Chloride Level 101 mmol/L (98-107) 102 mmol/L (98-107) Carbon Dioxide Level 29 mmol/L (21-32) 28 mmol/L (21-32) Anion Gap 7 (6-14) 6 (6-14) Blood Urea Nitrogen 11 mg/dL (8-26) 9 mg/dL (8-26) Creatinine 0.9 mg/dL (0.7-1.3) 1.0 mg/dL (0.7-1.3) Estimated GFR (Cockcroft-Gault) 86.7 76.7 Glucose Level 129 mg/dL (70-99) 132 mg/dL (70-99) Calcium Level 8.5 mg/dL (8.5-10.1) 8.0 mg/dL (8.5-10.1) Laboratory Tests Test 12/30/17 07:50 White Blood Count 11.6 x10^3/uL (4.0-11.0) Red Blood Count 4.45 x10^6/uL (4.30-5.70) Hemoglobin 13.0 g/dL (13.0-17.5) Hematocrit 38.6 % (39.0-53.0) Mean Corpuscular Volume 87 fL (79-100) Mean Corpuscular Hemoglobin 29 pg (25-35) Mean Corpuscular Hemoglobin Concent 34 g/dL (31-37) Red Cell Distribution Width 13.6 % (11.5-14.5) Platelet Count 237 x10^3/uL (140-400) Neutrophils (%) (Auto) 76 % (31-73) Lymphocytes (%) (Auto) 9 % (24-48) Monocytes (%) (Auto) 14 % (0-9) Eosinophils (%) (Auto) 1 % (0-3) Basophils (%) (Auto) 1 % (0-3) Neutrophils # (Auto) 8.8 x10^3uL (1.8-7.7) Lymphocytes # (Auto) 1.0 x10^3/uL (1.0-4.8) Monocytes # (Auto) 1.7 x10^3/uL (0.0-1.1) Eosinophils # (Auto) 0.1 x10^3/uL (0.0-0.7) Basophils # (Auto) 0.1 x10^3/uL (0.0-0.2) Sodium Level 136 mmol/L (136-145) Potassium Level 4.1 mmol/L (3.5-5.1) Chloride Level 102 mmol/L (98-107) Carbon Dioxide Level 28 mmol/L (21-32) Anion Gap 6 (6-14) Blood Urea Nitrogen 9 mg/dL (8-26) Creatinine 1.0 mg/dL (0.7-1.3) Estimated GFR (Cockcroft-Gault) 76.7 Glucose Level 132 mg/dL (70-99) Calcium Level 8.0 mg/dL (8.5-10.1) Medications Current Medications Potassium Chloride/Dextrose/ Sod Cl 1,000 ml @ 100 mls/hr Q10H IV Last administered on 12/30/17at 06:39; Start 12/27/17 at 17:30 Ondansetron HCl (Zofran) 4 mg PRN Q6HRS PRN IV NAUSEA/VOMITING, 1ST CHOICE Last administered on 12/28/17at 09:04; Start 12/27/17 at 17:15; Stop 12/28/17 at 21:00; Status DC Prochlorperazine Edisylate (Compazine) 10 mg PRN Q6HRS PRN IV NAUSEA/VOMITING, 2ND CHOICE Last administered on 12/30/17at 01:32; Start 12/27/17 at 17:15 Calcium Carbonate/ Glycine (Tums) 500 mg PRN Q3HRS PRN PO UPSET STOMACH; Start 12/27/17 at 17:15 Zolpidem Tartrate (Ambien) 5 mg PRN QHS PRN PO INSOMNIA, MAY REPEAT IN 1HR Last administered on 12/27/17at 23:44; Start 12/27/17 at 17:15 Oxycodone HCl (Roxicodone) 5 mg PRN Q3HRS PRN PO BREAKTHROUGH PAIN Last administered on 12/27/17at 23:52; Start 12/27/17 at 17:15 Morphine Sulfate (Morphine Sulfate) 2 mg PRN Q2HR PRN IV MODERATE PAIN Last administered on 12/28/17at 08:44; Start 12/27/17 at 17:15; Stop 12/28/17 at 21:00 ; Status DC Acetaminophen (Tylenol) 650 mg PRN Q6HRS PRN PO Headaches, Temp > 101.5F; Start 12/27/17 at 17:15 Pantoprazole Sodium (PROTONIX VIAL for IV PUSH) 40 mg DAILYAC IVP Last administered on 12/30/17at 10:18; Start 12/27/17 at 18:00 Fentanyl Citrate (Fentanyl 2ml Vial) 50 mcg PRN Q2HR PRN IV SEVERE PAIN Last administered on 12/27/17at 18:16; Start 12/27/17 at 17:15; Stop 12/28/17 at 21:01 ; Status DC Succinylcholine Chloride (Anectine) 200 mg STK-MED ONCE .ROUTE ; Start 12/28/17 at 16:55; Stop 12/28/17 at 16:56; Status DC Rocuronium [place] (Zemuron) 50 mg STK-MED ONCE .ROUTE ; Start 12/28/17 at 16:55 ; Stop 12/28/17 at 16:56; Status DC Dexamethasone Sodium Phosphate (Decadron) 20 mg STK-MED ONCE .ROUTE ; Start at 16:56; Stop 12/28/17 at 16:57; Status DC Ondansetron HCl (Zofran) 4 mg STK-MED ONCE .ROUTE ; Start 12/28/17 at 16:56; Stop 12/28/17 at 16:57; Status DC Phenylephrine HCl (PHENYLEPHRINE in 0.9% NACL PF) 1 mg STK-MED ONCE IV ; Start 12/28/17 at 16:56; Stop 12/28/17 at 16:57; Status DC Ephedrine Sulfate (ePHEDrine PF IN SALINE SYRINGE) 50 mg STK-MED ONCE IV ; Start 12/28/17 at 16:56; Stop 12/28/17 at 16:57; Status DC Fentanyl Citrate (Fentanyl 2ml Vial) 100 mcg STK-MED ONCE .ROUTE ; Start at 16:58; Stop 12/28/17 at 16:59; Status DC Midazolam HCl (Versed) 2 mg STK-MED ONCE .ROUTE ; Start 12/28/17 at 16:58; Stop 12/28/17 at 16:59; Status DC Cefazolin Sodium/ Dextrose 50 ml @ 100 mls/hr 1X PERIOP IV Last administered on 12/28/17at 18:23; Start 12/28/17 at 17:00; Stop 12/28/17 at 23:59; Status DC Bupivacaine HCl/ Epinephrine Bitart (Marcaine-Epi 0.5%-1:[id number]) 50 ml STK-MED ONCE .ROUTE ; Start 12/28/17 at 16:44; Stop 12/28/17 at 17:45; Status DC Glycopyrrolate (Robinul) 1 mg STK-MED ONCE .ROUTE ; Start 12/28/17 at 18:18; Stop 12/28/17 at 18:19; Status DC Neostigmine Methylsulfate (Neostigmine Methylsulfate) 5 mg STK-MED ONCE .ROUTE ; Start 12/28/17 at 18:18; Stop 12/28/17 at 18:19; Status DC Fentanyl Citrate (Fentanyl 2ml Vial) 100 mcg STK-MED ONCE .ROUTE ; Start at 18:18; Stop 12/28/17 at 18:19; Status DC Rocuronium [place] (Zemuron) 50 mg STK-MED ONCE .ROUTE ; Start 12/28/17 at 19:31 ; Stop 12/28/17 at 19:32; Status DC Propofol 20 ml @ As Directed STK-MED ONCE IV ; Start 12/28/17 at 19:33; Stop at 19:34; Status DC Albumin Human 500 ml @ As Directed STK-MED ONCE IV ; Start 12/28/17 at 20:27; Stop 12/28/17 at 20:28; Status DC Enoxaparin Sodium (Lovenox 40mg Syringe) 40 mg Q24H SQ Last administered on at 21:34; Start 12/28/17 at 21:00 Sodium Chloride (Normal Saline Flush) 3 ml QSHIFT PRN IV AFTER MEDS AND BLOOD DRAWS; Start 12/28/17 at 21:00 Ringer's Solution 1,000 ml @ 100 mls/hr Q10H IV Last administered on at 21:27; Start 12/28/17 at 21:00; Stop 12/28/17 at 23:53; Status DC Naloxone HCl (Narcan) 0.4 mg PRN Q2MIN PRN IV SEE INSTRUCTIONS; Start 12/28/17 at 21:00 Sodium Chloride 1,000 ml @ 25 mls/hr Q24H IV ; Start 12/28/17 at 21:00; Stop at 21:01; Status DC Morphine Sulfate 30 ml @ 0 mls/hr CONT PRN PRN IV PER PROTOCOL Last administered on 12/30/17at 03:17; Start 12/28/17 at 21:00 Docusate Sodium (Colace) 100 mg BID PO ; Start 12/28/17 at 21:00 Ondansetron HCl (Zofran) 4 mg PRN Q6HRS PRN IV NAUESA, 1ST CHOICE; Start at 21:00 Fentanyl Citrate (Fentanyl 2ml Vial) 100 mcg STK-MED ONCE .ROUTE ; Start at 21:09; Stop 12/28/17 at 21:10; Status DC Ondansetron HCl (Zofran) 4 mg PRN Q6HRS PRN IV NAUSEA/VOMITING; Start 12/28/17 at 21:45; Stop 12/29/17 at 21:44; Status DC Fentanyl Citrate (Fentanyl 2ml Vial) 25 mcg PRN Q5MIN PRN IV MILD PAIN; Start 12/28/17 at 21:45; Stop 12/29/17 at 21:44; Status DC Fentanyl Citrate (Fentanyl 2ml Vial) 50 mcg PRN Q5MIN PRN IV MODERATE TO SEVERE PAIN Last administered on 12/28/17at 22:04; Start 12/28/17 at 21:45; Stop 12/29/17 at 21:44; Status DC Morphine Sulfate (Morphine Sulfate) 1 mg PRN Q10MIN PRN IV SEVERE PAIN; Start 12/28/17 at 21:45; Stop 12/29/17 at 21:44; Status DC Ringer's Solution 1,000 ml @ 30 mls/hr Q24H IV Last administered on 12/28/17at 22:35; Start 12/28/17 at 21:31; Stop 12/29/17 at 09:30; Status DC Lidocaine HCl (Xylocaine-Mpf 1% 2ml Vial) 2 ml PRN 1X PRN ID PRIOR TO IV START ; Start 12/28/17 at 21:45; Stop 12/29/17 at 21:44; Status DC Hydromorphone HCl (Dilaudid) 0.5 mg PRN Q10MIN PRN IV SEV PAIN, Second choice; Start 12/28/17 at 21:45; Stop 12/29/17 at 21:44; Status DC Prochlorperazine Edisylate (Compazine) 5 mg PACU PRN PRN IV NAUSEA, MRX1; Start 12/28/17 at 21:45; Stop 12/29/17 at 21:44; Status DC Throat Lozenges (Chloraseptic) 1 spray PRN Q2HR PRN PO SORE THROAT Last administered on 12/29/17at 21:42; Start 12/29/17 at 21:15 Active Scripts Active Reported Lisinopril-Hctz 20-25 Mg Tab (Lisinopril/Hydrochlorothiazide) 1 Each Tablet 1 Tab PO DAILY Zolpidem Tartrate Er (Zolpidem Tartrate) 12.5 Mg Tab.mphase 1 Tab PO QHS Vitals/I & O Vital Sign - Last 24 Hours 12/29/17 12/29/17 12/29/17 12/29/17 15:00 15:50 19:00 20:00 Temp 98.5 97.9 98.5 97.9 Pulse 96 116 Resp 20 16 16 B/P (MAP) 119/68 (85) 131/77 (95) Pulse Ox 95 93 94 O2 Delivery Room Air Room Air Room Air Room Air O2 Flow Rate 2.0 12/29/17 12/30/17 12/30/17 12/30/17 23:07 03:06 03:17 03:47 Temp 97.7 97.2 97.7 97.2 Pulse 117 113 Resp 18 18 20 20 B/P (MAP) 125/82 (96) 131/76 (94) Pulse Ox 92 91 91 O2 Delivery Room Air Room Air Room Air Room Air 12/30/17 07:00 Temp 98.0 98.0 Pulse 110 B/P (MAP) 124/75 (91) Pulse Ox 89 O2 Delivery Room Air Intake and Output 12/29/17 12/29/17 12/30/17 15:00 23:00 07:00 Intake Total 0 ml Balance 0 ml BROOKE ASHLEY MD Dec 30, 2017 11:36
--- NOTE | 2017-12-30 13:03 | PDOC ---
SURGICAL PROGRESS NOTE Subjective Ng clamped, no emesis no flatus yet pain managed Vital Signs Vital Signs Date Time Temp Pulse Resp B/P (MAP) Pulse Ox O2 Delivery O2 Flow Rate FiO2 12/30/17 11:00 97.4 110 16 146/81 (102) 89 Room Air 97.4 12/29/17 15:50 2.0 I&O Intake and Output 12/30/17 07:00 Intake Total 0 ml Balance 0 ml Intake Oral 0 ml # Voids 9 General: Alert, Oriented X3, Cooperative, No acute distress HEENT: Other (ng clamped) Abdomen: Soft, Other (dressing dry) Labs Laboratory Tests Test 12/29/17 05:30 12/30/17 07:50 White Blood Count 14.0 x10^3/uL (4.0-11.0) 11.6 x10^3/uL (4.0-11.0) Red Blood Count 4.69 x10^6/uL (4.30-5.70) 4.45 x10^6/uL (4.30-5.70) Hemoglobin 13.7 g/dL (13.0-17.5) 13.0 g/dL (13.0-17.5) Hematocrit 40.7 % (39.0-53.0) 38.6 % (39.0-53.0) Mean Corpuscular Volume 87 fL (79-100) 87 fL (79-100) Mean Corpuscular Hemoglobin 29 pg (25-35) 29 pg (25-35) Mean Corpuscular Hemoglobin Concent 34 g/dL (31-37) 34 g/dL (31-37) Red Cell Distribution Width 13.4 % (11.5-14.5) 13.6 % (11.5-14.5) Platelet Count 242 x10^3/uL (140-400) 237 x10^3/uL (140-400) Neutrophils (%) (Auto) 85 % (31-73) 76 % (31-73) Lymphocytes (%) (Auto) 3 % (24-48) 9 % (24-48) Monocytes (%) (Auto) 12 % (0-9) 14 % (0-9) Eosinophils (%) (Auto) 0 % (0-3) 1 % (0-3) Basophils (%) (Auto) 0 % (0-3) 1 % (0-3) Neutrophils # (Auto) 12.0 x10^3uL (1.8-7.7) 8.8 x10^3uL (1.8-7.7) Lymphocytes # (Auto) 0.4 x10^3/uL (1.0-4.8) 1.0 x10^3/uL (1.0-4.8) Monocytes # (Auto) 1.6 x10^3/uL (0.0-1.1) 1.7 x10^3/uL (0.0-1.1) Eosinophils # (Auto) 0.0 x10^3/uL (0.0-0.7) 0.1 x10^3/uL (0.0-0.7) Basophils # (Auto) 0.0 x10^3/uL (0.0-0.2) 0.1 x10^3/uL (0.0-0.2) Sodium Level 137 mmol/L (136-145) 136 mmol/L (136-145) Potassium Level 4.5 mmol/L (3.5-5.1) 4.1 mmol/L (3.5-5.1) Chloride Level 101 mmol/L (98-107) 102 mmol/L (98-107) Carbon Dioxide Level 29 mmol/L (21-32) 28 mmol/L (21-32) Anion Gap 7 (6-14) 6 (6-14) Blood Urea Nitrogen 11 mg/dL (8-26) 9 mg/dL (8-26) Creatinine 0.9 mg/dL (0.7-1.3) 1.0 mg/dL (0.7-1.3) Estimated GFR (Cockcroft-Gault) 86.7 76.7 Glucose Level 129 mg/dL (70-99) 132 mg/dL (70-99) Calcium Level 8.5 mg/dL (8.5-10.1) 8.0 mg/dL (8.5-10.1) Laboratory Tests Test 12/30/17 07:50 White Blood Count 11.6 x10^3/uL (4.0-11.0) Red Blood Count 4.45 x10^6/uL (4.30-5.70) Hemoglobin 13.0 g/dL (13.0-17.5) Hematocrit 38.6 % (39.0-53.0) Mean Corpuscular Volume 87 fL (79-100) Mean Corpuscular Hemoglobin 29 pg (25-35) Mean Corpuscular Hemoglobin Concent 34 g/dL (31-37) Red Cell Distribution Width 13.6 % (11.5-14.5) Platelet Count 237 x10^3/uL (140-400) Neutrophils (%) (Auto) 76 % (31-73) Lymphocytes (%) (Auto) 9 % (24-48) Monocytes (%) (Auto) 14 % (0-9) Eosinophils (%) (Auto) 1 % (0-3) Basophils (%) (Auto) 1 % (0-3) Neutrophils # (Auto) 8.8 x10^3uL (1.8-7.7) Lymphocytes # (Auto) 1.0 x10^3/uL (1.0-4.8) Monocytes # (Auto) 1.7 x10^3/uL (0.0-1.1) Eosinophils # (Auto) 0.1 x10^3/uL (0.0-0.7) Basophils # (Auto) 0.1 x10^3/uL (0.0-0.2) Sodium Level 136 mmol/L (136-145) Potassium Level 4.1 mmol/L (3.5-5.1) Chloride Level 102 mmol/L (98-107) Carbon Dioxide Level 28 mmol/L (21-32) Anion Gap 6 (6-14) Blood Urea Nitrogen 9 mg/dL (8-26) Creatinine 1.0 mg/dL (0.7-1.3) Estimated GFR (Cockcroft-Gault) 76.7 Glucose Level 132 mg/dL (70-99) Calcium Level 8.0 mg/dL (8.5-10.1) Problem List s/p VIH if residual < 100cc, DC ng, continue NPO, await bowel function MODESTO GENTILE APRN Dec 30, 2017 13:03
[2017-12-30 16:00] VITALS: BP 124/80
[2017-12-30 19:00] VITALS: BP 126/74
[2017-12-30] MEDS: ENOXAPARIN 40 MG/0.4 ML SYRINGE. SQ SCH (21:22)
[2017-12-30 23:00] VITALS: BP 122/79
[2017-12-31] MEDS: POTASSIUM CL 40MEQ D5-0.45NACL 1,000 ML IV SCH ×3 (01:30→20:38)
[2017-12-31 03:00] VITALS: BP 137/87
[2017-12-31 05:32] LABS: BASO # 0.1 x10^3/uL (0.0-0.2); BASO % 1 % (0-3); EOS # 0.3 x10^3/uL (0.0-0.7); EOS % 3 % (0-3); HEMATOCRIT 37.1 % (39.0-53.0); HEMOGLOBIN 12.8 g/dL (13.0-17.5); LYMPH # 1.2 x10^3/uL (1.0-4.8); LYMPH % 11 % (24-48); MEAN CORPUSCULAR HEMOGLOBIN 30 pg (25-35); MEAN CORPUSCULAR HGB CONC 35 g/dL (31-37); MEAN CORPUSCULAR VOLUME 88 fL (79-100); MONO # 1.2 x10^3/uL (0.0-1.1); MONO % 11 % (0-9); NEUT # 7.6 x10^3uL (1.8-7.7); NEUT % 74 % (31-73); PLATELET COUNT 228 x10^3/uL (140-400); RED BLOOD COUNT 4.23 x10^6/uL (4.30-5.70); RED CELL DISTRIBUTION WIDTH 13.8 % (11.5-14.5); WHITE BLOOD COUNT 10.3 x10^3/uL (4.0-11.0)
[2017-12-31 06:27] LABS: CALCIUM 8.4 mg/dL (8.5-10.1); CREATININE 0.9 mg/dL (0.7-1.3); GFR 86.7
[2017-12-31 07:00] VITALS: BP 125/74
[2017-12-31] MEDS: DOCUSATE SODIUM 100 MG CAPSULE. PO SCH ×3 (09:00→20:33)
[2017-12-31] MEDS: PANTOPRAZOLE IV PUSH 40 MG VIAL. IVP SCH (10:02)
--- NOTE | 2017-12-31 10:04 | PDOC ---
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 seen and examined Pt. alert and oriented; good affect VSS NG tube clamped Ventral dressing clean, dry and intact Pt. on [employer] , pt still use it often no flatus, no BM post op has mild nausea Vitals Vitals Vital Signs Date Time Temp Pulse Resp B/P (MAP) Pulse Ox O2 Delivery O2 Flow Rate FiO2 12/31/17 07:00 99.0 110 18 125/74 (91) 95 Room Air 99.0 12/30/17 20:00 2.0 Physical Exam General: Alert, Oriented X3, Cooperative, No acute distress Heart: Regular rate, Normal S1, Normal S2, No murmurs Lungs: Clear Abdomen: Soft, Other (dressing dry) Extremities: No clubbing, No cyanosis Skin: No rashes, No breakdown Labs LABS Laboratory Tests Test 12/31/17 04:26 White Blood Count 10.3 x10^3/uL (4.0-11.0) Red Blood Count 4.23 x10^6/uL (4.30-5.70) Hemoglobin 12.8 g/dL (13.0-17.5) Hematocrit 37.1 % (39.0-53.0) Mean Corpuscular Volume 88 fL (79-100) Mean Corpuscular Hemoglobin 30 pg (25-35) Mean Corpuscular Hemoglobin Concent 35 g/dL (31-37) Red Cell Distribution Width 13.8 % (11.5-14.5) Platelet Count 228 x10^3/uL (140-400) Neutrophils (%) (Auto) 74 % (31-73) Lymphocytes (%) (Auto) 11 % (24-48) Monocytes (%) (Auto) 11 % (0-9) Eosinophils (%) (Auto) 3 % (0-3) Basophils (%) (Auto) 1 % (0-3) Neutrophils # (Auto) 7.6 x10^3uL (1.8-7.7) Lymphocytes # (Auto) 1.2 x10^3/uL (1.0-4.8) Monocytes # (Auto) 1.2 x10^3/uL (0.0-1.1) Eosinophils # (Auto) 0.3 x10^3/uL (0.0-0.7) Basophils # (Auto) 0.1 x10^3/uL (0.0-0.2) Sodium Level 135 mmol/L (136-145) Potassium Level 4.0 mmol/L (3.5-5.1) Chloride Level 100 mmol/L (98-107) Carbon Dioxide Level 29 mmol/L (21-32) Anion Gap 6 (6-14) Blood Urea Nitrogen 8 mg/dL (8-26) Creatinine 0.9 mg/dL (0.7-1.3) Estimated GFR (Cockcroft-Gault) 86.7 Glucose Level 101 mg/dL (70-99) Calcium Level 8.4 mg/dL (8.5-10.1) Comment Review of Relevant I have reviewed the following items henna (where applicable) has been applied. Labs Laboratory Tests Test 12/30/17 07:50 12/31/17 04:26 White Blood Count 11.6 x10^3/uL (4.0-11.0) 10.3 x10^3/uL (4.0-11.0) Red Blood Count 4.45 x10^6/uL (4.30-5.70) 4.23 x10^6/uL (4.30-5.70) Hemoglobin 13.0 g/dL (13.0-17.5) 12.8 g/dL (13.0-17.5) Hematocrit 38.6 % (39.0-53.0) 37.1 % (39.0-53.0) Mean Corpuscular Volume 87 fL (79-100) 88 fL (79-100) Mean Corpuscular Hemoglobin 29 pg (25-35) 30 pg (25-35) Mean Corpuscular Hemoglobin Concent 34 g/dL (31-37) 35 g/dL (31-37) Red Cell Distribution Width 13.6 % (11.5-14.5) 13.8 % (11.5-14.5) Platelet Count 237 x10^3/uL (140-400) 228 x10^3/uL (140-400) Neutrophils (%) (Auto) 76 % (31-73) 74 % (31-73) Lymphocytes (%) (Auto) 9 % (24-48) 11 % (24-48) Monocytes (%) (Auto) 14 % (0-9) 11 % (0-9) Eosinophils (%) (Auto) 1 % (0-3) 3 % (0-3) Basophils (%) (Auto) 1 % (0-3) 1 % (0-3) Neutrophils # (Auto) 8.8 x10^3uL (1.8-7.7) 7.6 x10^3uL (1.8-7.7) Lymphocytes # (Auto) 1.0 x10^3/uL (1.0-4.8) 1.2 x10^3/uL (1.0-4.8) Monocytes # (Auto) 1.7 x10^3/uL (0.0-1.1) 1.2 x10^3/uL (0.0-1.1) Eosinophils # (Auto) 0.1 x10^3/uL (0.0-0.7) 0.3 x10^3/uL (0.0-0.7) Basophils # (Auto) 0.1 x10^3/uL (0.0-0.2) 0.1 x10^3/uL (0.0-0.2) Sodium Level 136 mmol/L (136-145) 135 mmol/L (136-145) Potassium Level 4.1 mmol/L (3.5-5.1) 4.0 mmol/L (3.5-5.1) Chloride Level 102 mmol/L (98-107) 100 mmol/L (98-107) Carbon Dioxide Level 28 mmol/L (21-32) 29 mmol/L (21-32) Anion Gap 6 (6-14) 6 (6-14) Blood Urea Nitrogen 9 mg/dL (8-26) 8 mg/dL (8-26) Creatinine 1.0 mg/dL (0.7-1.3) 0.9 mg/dL (0.7-1.3) Estimated GFR (Cockcroft-Gault) 76.7 86.7 Glucose Level 132 mg/dL (70-99) 101 mg/dL (70-99) Calcium Level 8.0 mg/dL (8.5-10.1) 8.4 mg/dL (8.5-10.1) Laboratory Tests Test 12/31/17 04:26 White Blood Count 10.3 x10^3/uL (4.0-11.0) Red Blood Count 4.23 x10^6/uL (4.30-5.70) Hemoglobin 12.8 g/dL (13.0-17.5) Hematocrit 37.1 % (39.0-53.0) Mean Corpuscular Volume 88 fL (79-100) Mean Corpuscular Hemoglobin 30 pg (25-35) Mean Corpuscular Hemoglobin Concent 35 g/dL (31-37) Red Cell Distribution Width 13.8 % (11.5-14.5) Platelet Count 228 x10^3/uL (140-400) Neutrophils (%) (Auto) 74 % (31-73) Lymphocytes (%) (Auto) 11 % (24-48) Monocytes (%) (Auto) 11 % (0-9) Eosinophils (%) (Auto) 3 % (0-3) Basophils (%) (Auto) 1 % (0-3) Neutrophils # (Auto) 7.6 x10^3uL (1.8-7.7) Lymphocytes # (Auto) 1.2 x10^3/uL (1.0-4.8) Monocytes # (Auto) 1.2 x10^3/uL (0.0-1.1) Eosinophils # (Auto) 0.3 x10^3/uL (0.0-0.7) Basophils # (Auto) 0.1 x10^3/uL (0.0-0.2) Sodium Level 135 mmol/L (136-145) Potassium Level 4.0 mmol/L (3.5-5.1) Chloride Level 100 mmol/L (98-107) Carbon Dioxide Level 29 mmol/L (21-32) Anion Gap 6 (6-14) Blood Urea Nitrogen 8 mg/dL (8-26) Creatinine 0.9 mg/dL (0.7-1.3) Estimated GFR (Cockcroft-Gault) 86.7 Glucose Level 101 mg/dL (70-99) Calcium Level 8.4 mg/dL (8.5-10.1) Medications Current Medications Potassium Chloride/Dextrose/ Sod Cl 1,000 ml @ 100 mls/hr Q10H IV Last administered on 12/31/17at 01:30; Start 12/27/17 at 17:30 Ondansetron HCl (Zofran) 4 mg PRN Q6HRS PRN IV NAUSEA/VOMITING, 1ST CHOICE Last administered on 12/28/17at 09:04; Start 12/27/17 at 17:15; Stop 12/28/17 at 21:00; Status DC Prochlorperazine Edisylate (Compazine) 10 mg PRN Q6HRS PRN IV NAUSEA/VOMITING, 2ND CHOICE Last administered on 12/30/17at 01:32; Start 12/27/17 at 17:15 Calcium Carbonate/ Glycine (Tums) 500 mg PRN Q3HRS PRN PO UPSET STOMACH; Start 12/27/17 at 17:15 Zolpidem Tartrate (Ambien) 5 mg PRN QHS PRN PO INSOMNIA, MAY REPEAT IN 1HR Last administered on 12/27/17at 23:44; Start 12/27/17 at 17:15 Oxycodone HCl (Roxicodone) 5 mg PRN Q3HRS PRN PO BREAKTHROUGH PAIN Last administered on 12/27/17at 23:52; Start 12/27/17 at 17:15 Morphine Sulfate (Morphine Sulfate) 2 mg PRN Q2HR PRN IV MODERATE PAIN Last administered on 12/28/17at 08:44; Start 12/27/17 at 17:15; Stop 12/28/17 at 21:00 ; Status DC Acetaminophen (Tylenol) 650 mg PRN Q6HRS PRN PO Headaches, Temp > 101.5F; Start 12/27/17 at 17:15 Pantoprazole Sodium (PROTONIX VIAL for IV PUSH) 40 mg DAILYAC IVP Last administered on 12/31/17at 10:02; Start 12/27/17 at 18:00 Fentanyl Citrate (Fentanyl 2ml Vial) 50 mcg PRN Q2HR PRN IV SEVERE PAIN Last administered on 12/27/17at 18:16; Start 12/27/17 at 17:15; Stop 12/28/17 at 21:01 ; Status DC Succinylcholine Chloride (Anectine) 200 mg STK-MED ONCE .ROUTE ; Start 12/28/17 at 16:55; Stop 12/28/17 at 16:56; Status DC Rocuronium [place] (Zemuron) 50 mg STK-MED ONCE .ROUTE ; Start 12/28/17 at 16:55 ; Stop 12/28/17 at 16:56; Status DC Dexamethasone Sodium Phosphate (Decadron) 20 mg STK-MED ONCE .ROUTE ; Start at 16:56; Stop 12/28/17 at 16:57; Status DC Ondansetron HCl (Zofran) 4 mg STK-MED ONCE .ROUTE ; Start 12/28/17 at 16:56; Stop 12/28/17 at 16:57; Status DC Phenylephrine HCl (PHENYLEPHRINE in 0.9% NACL PF) 1 mg STK-MED ONCE IV ; Start 12/28/17 at 16:56; Stop 12/28/17 at 16:57; Status DC Ephedrine Sulfate (ePHEDrine PF IN SALINE SYRINGE) 50 mg STK-MED ONCE IV ; Start 12/28/17 at 16:56; Stop 12/28/17 at 16:57; Status DC Fentanyl Citrate (Fentanyl 2ml Vial) 100 mcg STK-MED ONCE .ROUTE ; Start at 16:58; Stop 12/28/17 at 16:59; Status DC Midazolam HCl (Versed) 2 mg STK-MED ONCE .ROUTE ; Start 12/28/17 at 16:58; Stop 12/28/17 at 16:59; Status DC Cefazolin Sodium/ Dextrose 50 ml @ 100 mls/hr 1X PERIOP IV Last administered on 12/28/17at 18:23; Start 12/28/17 at 17:00; Stop 12/28/17 at 23:59; Status DC Bupivacaine HCl/ Epinephrine Bitart (Marcaine-Epi 0.5%-1:261006) 50 ml STK-MED ONCE .ROUTE ; Start 12/28/17 at 16:44; Stop 12/28/17 at 17:45; Status DC Glycopyrrolate (Robinul) 1 mg STK-MED ONCE .ROUTE ; Start 12/28/17 at 18:18; Stop 12/28/17 at 18:19; Status DC Neostigmine Methylsulfate (Neostigmine Methylsulfate) 5 mg STK-MED ONCE .ROUTE ; Start 12/28/17 at 18:18; Stop 12/28/17 at 18:19; Status DC Fentanyl Citrate (Fentanyl 2ml Vial) 100 mcg STK-MED ONCE .ROUTE ; Start at 18:18; Stop 12/28/17 at 18:19; Status DC Rocuronium [place] (Zemuron) 50 mg STK-MED ONCE .ROUTE ; Start 12/28/17 at 19:31 ; Stop 12/28/17 at 19:32; Status DC Propofol 20 ml @ As Directed STK-MED ONCE IV ; Start 12/28/17 at 19:33; Stop at 19:34; Status DC Albumin Human 500 ml @ As Directed STK-MED ONCE IV ; Start 12/28/17 at 20:27; Stop 12/28/17 at 20:28; Status DC Enoxaparin Sodium (Lovenox 40mg Syringe) 40 mg Q24H SQ Last administered on at 21:22; Start 12/28/17 at 21:00 Sodium Chloride (Normal Saline Flush) 3 ml QSHIFT PRN IV AFTER MEDS AND BLOOD DRAWS; Start 12/28/17 at 21:00 Ringer's Solution 1,000 ml @ 100 mls/hr Q10H IV Last administered on at 21:27; Start 12/28/17 at 21:00; Stop 12/28/17 at 23:53; Status DC Naloxone HCl (Narcan) 0.4 mg PRN Q2MIN PRN IV SEE INSTRUCTIONS; Start 12/28/17 at 21:00 Sodium Chloride 1,000 ml @ 25 mls/hr Q24H IV ; Start 12/28/17 at 21:00; Stop at 21:01; Status DC Morphine Sulfate 30 ml @ 0 mls/hr CONT PRN PRN IV PER PROTOCOL Last administered on 12/30/17at 03:17; Start 12/28/17 at 21:00 Docusate Sodium (Colace) 100 mg BID PO Last administered on 12/30/17at 21:22; Start 12/28/17 at 21:00 Ondansetron HCl (Zofran) 4 mg PRN Q6HRS PRN IV NAUESA, 1ST CHOICE; Start at 21:00 Fentanyl Citrate (Fentanyl 2ml Vial) 100 mcg STK-MED ONCE .ROUTE ; Start at 21:09; Stop 12/28/17 at 21:10; Status DC Ondansetron HCl (Zofran) 4 mg PRN Q6HRS PRN IV NAUSEA/VOMITING; Start 12/28/17 at 21:45; Stop 12/29/17 at 21:44; Status DC Fentanyl Citrate (Fentanyl 2ml Vial) 25 mcg PRN Q5MIN PRN IV MILD PAIN; Start 12/28/17 at 21:45; Stop 12/29/17 at 21:44; Status DC Fentanyl Citrate (Fentanyl 2ml Vial) 50 mcg PRN Q5MIN PRN IV MODERATE TO SEVERE PAIN Last administered on 12/28/17at 22:04; Start 12/28/17 at 21:45; Stop 12/29/17 at 21:44; Status DC Morphine Sulfate (Morphine Sulfate) 1 mg PRN Q10MIN PRN IV SEVERE PAIN; Start 12/28/17 at 21:45; Stop 12/29/17 at 21:44; Status DC Ringer's Solution 1,000 ml @ 30 mls/hr Q24H IV Last administered on 12/28/17at 22:35; Start 12/28/17 at 21:31; Stop 12/29/17 at 09:30; Status DC Lidocaine HCl (Xylocaine-Mpf 1% 2ml Vial) 2 ml PRN 1X PRN ID PRIOR TO IV START ; Start 12/28/17 at 21:45; Stop 12/29/17 at 21:44; Status DC Hydromorphone HCl (Dilaudid) 0.5 mg PRN Q10MIN PRN IV SEV PAIN, Second choice; Start 12/28/17 at 21:45; Stop 12/29/17 at 21:44; Status DC Prochlorperazine Edisylate (Compazine) 5 mg PACU PRN PRN IV NAUSEA, MRX1; Start 12/28/17 at 21:45; Stop 12/29/17 at 21:44; Status DC Throat Lozenges (Chloraseptic) 1 spray PRN Q2HR PRN PO SORE THROAT Last administered on 12/29/17at 21:42; Start 12/29/17 at 21:15 Active Scripts Active Reported Lisinopril-Hctz 20-25 Mg Tab (Lisinopril/Hydrochlorothiazide) 1 Each Tablet 1 Tab PO DAILY Zolpidem Tartrate Er (Zolpidem Tartrate) 12.5 Mg Tab.mphase 1 Tab PO QHS Vitals/I & O Vital Sign - Last 24 Hours 12/30/17 12/30/17 12/30/17 12/30/17 11:00 16:00 19:00 20:00 Temp 97.4 98.1 98.5 97.4 98.1 98.5 Pulse 110 101 99 Resp 16 18 20 B/P (MAP) 146/81 (102) 124/80 (95) 126/74 (91) Pulse Ox 89 90 99 O2 Delivery Room Air Room Air Room Air Room Air O2 Flow Rate 2.0 12/30/17 12/31/17 12/31/17 23:00 03:00 07:00 Temp 97.7 99.5 99.0 97.7 99.5 99.0 Pulse 104 107 110 Resp 18 20 18 B/P (MAP) 122/79 (93) 137/87 (104) 125/74 (91) Pulse Ox 94 94 95 O2 Delivery Room Air Room Air Room Air SEBLE TORO MD Dec 31, 2017 10:04
[2017-12-31 11:00] VITALS: BP 128/78
--- NOTE | 2017-12-31 11:32 | PDOC ---
SURGICAL PROGRESS NOTE Subjective concerned about his sinus drainage--takes mucinex at home no flatus, no nausea or bloating ambulating Vital Signs Vital Signs Date Time Temp Pulse Resp B/P (MAP) Pulse Ox O2 Delivery O2 Flow Rate FiO2 12/31/17 11:00 98.9 98 18 128/78 (95) 95 Room Air 98.9 12/30/17 20:00 2.0 General: Alert, Oriented X3, Cooperative, No acute distress Abdomen: Soft, Other (incision c/d/i, no erythema) Labs Laboratory Tests Test 12/30/17 07:50 12/31/17 04:26 White Blood Count 11.6 x10^3/uL (4.0-11.0) 10.3 x10^3/uL (4.0-11.0) Red Blood Count 4.45 x10^6/uL (4.30-5.70) 4.23 x10^6/uL (4.30-5.70) Hemoglobin 13.0 g/dL (13.0-17.5) 12.8 g/dL (13.0-17.5) Hematocrit 38.6 % (39.0-53.0) 37.1 % (39.0-53.0) Mean Corpuscular Volume 87 fL (79-100) 88 fL (79-100) Mean Corpuscular Hemoglobin 29 pg (25-35) 30 pg (25-35) Mean Corpuscular Hemoglobin Concent 34 g/dL (31-37) 35 g/dL (31-37) Red Cell Distribution Width 13.6 % (11.5-14.5) 13.8 % (11.5-14.5) Platelet Count 237 x10^3/uL (140-400) 228 x10^3/uL (140-400) Neutrophils (%) (Auto) 76 % (31-73) 74 % (31-73) Lymphocytes (%) (Auto) 9 % (24-48) 11 % (24-48) Monocytes (%) (Auto) 14 % (0-9) 11 % (0-9) Eosinophils (%) (Auto) 1 % (0-3) 3 % (0-3) Basophils (%) (Auto) 1 % (0-3) 1 % (0-3) Neutrophils # (Auto) 8.8 x10^3uL (1.8-7.7) 7.6 x10^3uL (1.8-7.7) Lymphocytes # (Auto) 1.0 x10^3/uL (1.0-4.8) 1.2 x10^3/uL (1.0-4.8) Monocytes # (Auto) 1.7 x10^3/uL (0.0-1.1) 1.2 x10^3/uL (0.0-1.1) Eosinophils # (Auto) 0.1 x10^3/uL (0.0-0.7) 0.3 x10^3/uL (0.0-0.7) Basophils # (Auto) 0.1 x10^3/uL (0.0-0.2) 0.1 x10^3/uL (0.0-0.2) Sodium Level 136 mmol/L (136-145) 135 mmol/L (136-145) Potassium Level 4.1 mmol/L (3.5-5.1) 4.0 mmol/L (3.5-5.1) Chloride Level 102 mmol/L (98-107) 100 mmol/L (98-107) Carbon Dioxide Level 28 mmol/L (21-32) 29 mmol/L (21-32) Anion Gap 6 (6-14) 6 (6-14) Blood Urea Nitrogen 9 mg/dL (8-26) 8 mg/dL (8-26) Creatinine 1.0 mg/dL (0.7-1.3) 0.9 mg/dL (0.7-1.3) Estimated GFR (Cockcroft-Gault) 76.7 86.7 Glucose Level 132 mg/dL (70-99) 101 mg/dL (70-99) Calcium Level 8.0 mg/dL (8.5-10.1) 8.4 mg/dL (8.5-10.1) Laboratory Tests Test 12/31/17 04:26 White Blood Count 10.3 x10^3/uL (4.0-11.0) Red Blood Count 4.23 x10^6/uL (4.30-5.70) Hemoglobin 12.8 g/dL (13.0-17.5) Hematocrit 37.1 % (39.0-53.0) Mean Corpuscular Volume 88 fL (79-100) Mean Corpuscular Hemoglobin 30 pg (25-35) Mean Corpuscular Hemoglobin Concent 35 g/dL (31-37) Red Cell Distribution Width 13.8 % (11.5-14.5) Platelet Count 228 x10^3/uL (140-400) Neutrophils (%) (Auto) 74 % (31-73) Lymphocytes (%) (Auto) 11 % (24-48) Monocytes (%) (Auto) 11 % (0-9) Eosinophils (%) (Auto) 3 % (0-3) Basophils (%) (Auto) 1 % (0-3) Neutrophils # (Auto) 7.6 x10^3uL (1.8-7.7) Lymphocytes # (Auto) 1.2 x10^3/uL (1.0-4.8) Monocytes # (Auto) 1.2 x10^3/uL (0.0-1.1) Eosinophils # (Auto) 0.3 x10^3/uL (0.0-0.7) Basophils # (Auto) 0.1 x10^3/uL (0.0-0.2) Sodium Level 135 mmol/L (136-145) Potassium Level 4.0 mmol/L (3.5-5.1) Chloride Level 100 mmol/L (98-107) Carbon Dioxide Level 29 mmol/L (21-32) Anion Gap 6 (6-14) Blood Urea Nitrogen 8 mg/dL (8-26) Creatinine 0.9 mg/dL (0.7-1.3) Estimated GFR (Cockcroft-Gault) 86.7 Glucose Level 101 mg/dL (70-99) Calcium Level 8.4 mg/dL (8.5-10.1) Assessment/Plan bowel rest, await return of bowel fx ice chips/sips ok started mucinex MODESTO GENTILE [employer] TECHNICIAN Dec 31, 2017 11:32
[2017-12-31 15:00] VITALS: BP 116/77
[2017-12-31 19:00] VITALS: BP 111/81
[2017-12-31] MEDS: FLUTICASONE 50MCG/NASAL SPRAY 16GM BOTTLE. NS SCH (20:33)
[2017-12-31] MEDS: ENOXAPARIN 40 MG/0.4 ML SYRINGE. SQ SCH (20:39)
[2017-12-31 23:00] VITALS: BP 124/81
[2018-01-01] MEDS: MORPHINE SULFATE/PF 30 ML IV PRN (02:11)
[2018-01-01 03:00] VITALS: BP 124/78
[2018-01-01] MEDS: BENZONATATE 100 MG CAPSULE. PO PRN ×2 (03:47→09:31)
[2018-01-01] MEDS: PANTOPRAZOLE IV PUSH 40 MG VIAL. IVP SCH (05:34)
[2018-01-01] MEDS: POTASSIUM CL 40MEQ D5-0.45NACL 1,000 ML IV SCH ×2 (05:34→17:21)
[2018-01-01 07:02] LABS: BASO # 0.1 x10^3/uL (0.0-0.2); BASO % 1 % (0-3); EOS # 0.6 x10^3/uL (0.0-0.7); EOS % 6 % (0-3); HEMATOCRIT 36.8 % (39.0-53.0); HEMOGLOBIN 12.7 g/dL (13.0-17.5); LYMPH # 1.3 x10^3/uL (1.0-4.8); LYMPH % 13 % (24-48); MEAN CORPUSCULAR HEMOGLOBIN 30 pg (25-35); MEAN CORPUSCULAR HGB CONC 35 g/dL (31-37); MEAN CORPUSCULAR VOLUME 87 fL (79-100); MONO # 1.2 x10^3/uL (0.0-1.1); MONO % 12 % (0-9); NEUT # 6.7 x10^3uL (1.8-7.7); NEUT % 68 % (31-73); PLATELET COUNT 296 x10^3/uL (140-400); RED BLOOD COUNT 4.22 x10^6/uL (4.30-5.70); RED CELL DISTRIBUTION WIDTH 13.5 % (11.5-14.5); WHITE BLOOD COUNT 9.9 x10^3/uL (4.0-11.0)
[2018-01-01 07:29] LABS: ALBUMIN 2.9 g/dL (3.4-5.0); ALBUMIN/GLOBULIN RATIO 0.7 (1.0-1.7); CALCIUM 8.6 mg/dL (8.5-10.1); CREATININE 0.8 mg/dL (0.7-1.3); GFR 99.3; TOTAL BILIRUBIN 0.9 mg/dL (0.2-1.0); TOTAL PROTEIN 6.9 g/dL (6.4-8.2)
[2018-01-01 07:47] VITALS: BP 124/81
[2018-01-01] MEDS: DOCUSATE SODIUM 100 MG CAPSULE. PO SCH ×2 (09:31→20:17)
[2018-01-01] MEDS: FLUTICASONE 50MCG/NASAL SPRAY 16GM BOTTLE. NS SCH ×2 (09:31→20:17)
--- NOTE | 2018-01-01 10:42 | PDOC ---
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 seen and examined Pt. alert and oriented; good affect VSS NG tube clamped Ventral dressing clean, dry and intact Pt. on BUTTONHOLER , pt still use it often no flatus, no BM post op has mild nausea Vitals Vitals Vital Signs Date Time Temp Pulse Resp B/P (MAP) Pulse Ox O2 Delivery O2 Flow Rate FiO2 01/01/18 07:47 98.5 98 20 124/81 (95) 93 Room Air 98.5 Physical Exam General: Alert, Oriented X3, Cooperative, No acute distress, mild distress Heart: Regular rate, Normal S1, Normal S2, No murmurs Lungs: Clear Abdomen: Soft, Other (incision c/d/i, no erythema) Extremities: No clubbing, No cyanosis Skin: No rashes, No breakdown Labs LABS Laboratory Tests Test 01/01/18 06:30 White Blood Count 9.9 x10^3/uL (4.0-11.0) Red Blood Count 4.22 x10^6/uL (4.30-5.70) Hemoglobin 12.7 g/dL (13.0-17.5) Hematocrit 36.8 % (39.0-53.0) Mean Corpuscular Volume 87 fL (79-100) Mean Corpuscular Hemoglobin 30 pg (25-35) Mean Corpuscular Hemoglobin Concent 35 g/dL (31-37) Red Cell Distribution Width 13.5 % (11.5-14.5) Platelet Count 296 x10^3/uL (140-400) Neutrophils (%) (Auto) 68 % (31-73) Lymphocytes (%) (Auto) 13 % (24-48) Monocytes (%) (Auto) 12 % (0-9) Eosinophils (%) (Auto) 6 % (0-3) Basophils (%) (Auto) 1 % (0-3) Neutrophils # (Auto) 6.7 x10^3uL (1.8-7.7) Lymphocytes # (Auto) 1.3 x10^3/uL (1.0-4.8) Monocytes # (Auto) 1.2 x10^3/uL (0.0-1.1) Eosinophils # (Auto) 0.6 x10^3/uL (0.0-0.7) Basophils # (Auto) 0.1 x10^3/uL (0.0-0.2) Sodium Level 134 mmol/L (136-145) Potassium Level 4.0 mmol/L (3.5-5.1) Chloride Level 99 mmol/L (98-107) Carbon Dioxide Level 24 mmol/L (21-32) Anion Gap 11 (6-14) Blood Urea Nitrogen 11 mg/dL (8-26) Creatinine 0.8 mg/dL (0.7-1.3) Estimated GFR (Cockcroft-Gault) 99.3 BUN/Creatinine Ratio 14 (6-20) Glucose Level 109 mg/dL (70-99) Calcium Level 8.6 mg/dL (8.5-10.1) Total Bilirubin 0.9 mg/dL (0.2-1.0) Aspartate Amino Transf (AST/SGOT) 15 U/L (15-37) Alanine Aminotransferase (ALT/SGPT) 21 U/L (16-63) Alkaline Phosphatase 65 U/L (46-116) Total Protein 6.9 g/dL (6.4-8.2) Albumin 2.9 g/dL (3.4-5.0) Albumin/Globulin Ratio 0.7 (1.0-1.7) Comment Review of Relevant I have reviewed the following items henna (where applicable) has been applied. Labs Laboratory Tests Test 12/31/17 04:26 01/01/18 06:30 White Blood Count 10.3 x10^3/uL (4.0-11.0) 9.9 x10^3/uL (4.0-11.0) Red Blood Count 4.23 x10^6/uL (4.30-5.70) 4.22 x10^6/uL (4.30-5.70) Hemoglobin 12.8 g/dL (13.0-17.5) 12.7 g/dL (13.0-17.5) Hematocrit 37.1 % (39.0-53.0) 36.8 % (39.0-53.0) Mean Corpuscular Volume 88 fL (79-100) 87 fL (79-100) Mean Corpuscular Hemoglobin 30 pg (25-35) 30 pg (25-35) Mean Corpuscular Hemoglobin Concent 35 g/dL (31-37) 35 g/dL (31-37) Red Cell Distribution Width 13.8 % (11.5-14.5) 13.5 % (11.5-14.5) Platelet Count 228 x10^3/uL (140-400) 296 x10^3/uL (140-400) Neutrophils (%) (Auto) 74 % (31-73) 68 % (31-73) Lymphocytes (%) (Auto) 11 % (24-48) 13 % (24-48) Monocytes (%) (Auto) 11 % (0-9) 12 % (0-9) Eosinophils (%) (Auto) 3 % (0-3) 6 % (0-3) Basophils (%) (Auto) 1 % (0-3) 1 % (0-3) Neutrophils # (Auto) 7.6 x10^3uL (1.8-7.7) 6.7 x10^3uL (1.8-7.7) Lymphocytes # (Auto) 1.2 x10^3/uL (1.0-4.8) 1.3 x10^3/uL (1.0-4.8) Monocytes # (Auto) 1.2 x10^3/uL (0.0-1.1) 1.2 x10^3/uL (0.0-1.1) Eosinophils # (Auto) 0.3 x10^3/uL (0.0-0.7) 0.6 x10^3/uL (0.0-0.7) Basophils # (Auto) 0.1 x10^3/uL (0.0-0.2) 0.1 x10^3/uL (0.0-0.2) Sodium Level 135 mmol/L (136-145) 134 mmol/L (136-145) Potassium Level 4.0 mmol/L (3.5-5.1) 4.0 mmol/L (3.5-5.1) Chloride Level 100 mmol/L (98-107) 99 mmol/L (98-107) Carbon Dioxide Level 29 mmol/L (21-32) 24 mmol/L (21-32) Anion Gap 6 (6-14) 11 (6-14) Blood Urea Nitrogen 8 mg/dL (8-26) 11 mg/dL (8-26) Creatinine 0.9 mg/dL (0.7-1.3) 0.8 mg/dL (0.7-1.3) Estimated GFR (Cockcroft-Gault) 86.7 99.3 Glucose Level 101 mg/dL (70-99) 109 mg/dL (70-99) Calcium Level 8.4 mg/dL (8.5-10.1) 8.6 mg/dL (8.5-10.1) BUN/Creatinine Ratio 14 (6-20) Total Bilirubin 0.9 mg/dL (0.2-1.0) Aspartate Amino Transf (AST/SGOT) 15 U/L (15-37) Alanine Aminotransferase (ALT/SGPT) 21 U/L (16-63) Alkaline Phosphatase 65 U/L (46-116) Total Protein 6.9 g/dL (6.4-8.2) Albumin 2.9 g/dL (3.4-5.0) Albumin/Globulin Ratio 0.7 (1.0-1.7) Laboratory Tests Test 01/01/18 06:30 White Blood Count 9.9 x10^3/uL (4.0-11.0) Red Blood Count 4.22 x10^6/uL (4.30-5.70) Hemoglobin 12.7 g/dL (13.0-17.5) Hematocrit 36.8 % (39.0-53.0) Mean Corpuscular Volume 87 fL (79-100) Mean Corpuscular Hemoglobin 30 pg (25-35) Mean Corpuscular Hemoglobin Concent 35 g/dL (31-37) Red Cell Distribution Width 13.5 % (11.5-14.5) Platelet Count 296 x10^3/uL (140-400) Neutrophils (%) (Auto) 68 % (31-73) Lymphocytes (%) (Auto) 13 % (24-48) Monocytes (%) (Auto) 12 % (0-9) Eosinophils (%) (Auto) 6 % (0-3) Basophils (%) (Auto) 1 % (0-3) Neutrophils # (Auto) 6.7 x10^3uL (1.8-7.7) Lymphocytes # (Auto) 1.3 x10^3/uL (1.0-4.8) Monocytes # (Auto) 1.2 x10^3/uL (0.0-1.1) Eosinophils # (Auto) 0.6 x10^3/uL (0.0-0.7) Basophils # (Auto) 0.1 x10^3/uL (0.0-0.2) Sodium Level 134 mmol/L (136-145) Potassium Level 4.0 mmol/L (3.5-5.1) Chloride Level 99 mmol/L (98-107) Carbon Dioxide Level 24 mmol/L (21-32) Anion Gap 11 (6-14) Blood Urea Nitrogen 11 mg/dL (8-26) Creatinine 0.8 mg/dL (0.7-1.3) Estimated GFR (Cockcroft-Gault) 99.3 BUN/Creatinine Ratio 14 (6-20) Glucose Level 109 mg/dL (70-99) Calcium Level 8.6 mg/dL (8.5-10.1) Total Bilirubin 0.9 mg/dL (0.2-1.0) Aspartate Amino Transf (AST/SGOT) 15 U/L (15-37) Alanine Aminotransferase (ALT/SGPT) 21 U/L (16-63) Alkaline Phosphatase 65 U/L (46-116) Total Protein 6.9 g/dL (6.4-8.2) Albumin 2.9 g/dL (3.4-5.0) Albumin/Globulin Ratio 0.7 (1.0-1.7) Medications Current Medications Potassium Chloride/Dextrose/ Sod Cl 1,000 ml @ 100 mls/hr Q10H IV Last administered on 01/01/18at 05:34; Start 12/27/17 at 17:30 Ondansetron HCl (Zofran) 4 mg PRN Q6HRS PRN IV NAUSEA/VOMITING, 1ST CHOICE Last administered on 12/28/17at 09:04; Start 12/27/17 at 17:15; Stop 12/28/17 at 21:00; Status DC Prochlorperazine Edisylate (Compazine) 10 mg PRN Q6HRS PRN IV NAUSEA/VOMITING, 2ND CHOICE Last administered on 12/30/17at 01:32; Start 12/27/17 at 17:15 Calcium Carbonate/ Glycine (Tums) 500 mg PRN Q3HRS PRN PO UPSET STOMACH; Start 12/27/17 at 17:15 Zolpidem Tartrate (Ambien) 5 mg PRN QHS PRN PO INSOMNIA, MAY REPEAT IN 1HR Last administered on 12/27/17at 23:44; Start 12/27/17 at 17:15 Oxycodone HCl (Roxicodone) 5 mg PRN Q3HRS PRN PO BREAKTHROUGH PAIN Last administered on 12/27/17at 23:52; Start 12/27/17 at 17:15 Morphine Sulfate (Morphine Sulfate) 2 mg PRN Q2HR PRN IV MODERATE PAIN Last administered on 12/28/17at 08:44; Start 12/27/17 at 17:15; Stop 12/28/17 at 21:00 ; Status DC Acetaminophen (Tylenol) 650 mg PRN Q6HRS PRN PO Headaches, Temp > 101.5F; Start 12/27/17 at 17:15 Pantoprazole Sodium (PROTONIX VIAL for IV PUSH) 40 mg DAILYAC IVP Last administered on 01/01/18at 05:34; Start 12/27/17 at 18:00 Fentanyl Citrate (Fentanyl 2ml Vial) 50 mcg PRN Q2HR PRN IV SEVERE PAIN Last administered on 12/27/17at 18:16; Start 12/27/17 at 17:15; Stop 12/28/17 at 21:01 ; Status DC Succinylcholine Chloride (Anectine) 200 mg STK-MED ONCE .ROUTE ; Start 12/28/17 at 16:55; Stop 12/28/17 at 16:56; Status DC Rocuronium [place] (Zemuron) 50 mg STK-MED ONCE .ROUTE ; Start 12/28/17 at 16:55 ; Stop 12/28/17 at 16:56; Status DC Dexamethasone Sodium Phosphate (Decadron) 20 mg STK-MED ONCE .ROUTE ; Start at 16:56; Stop 12/28/17 at 16:57; Status DC Ondansetron HCl (Zofran) 4 mg STK-MED ONCE .ROUTE ; Start 12/28/17 at 16:56; Stop 12/28/17 at 16:57; Status DC Phenylephrine HCl (PHENYLEPHRINE in 0.9% NACL PF) 1 mg STK-MED ONCE IV ; Start 12/28/17 at 16:56; Stop 12/28/17 at 16:57; Status DC Ephedrine Sulfate (ePHEDrine PF IN SALINE SYRINGE) 50 mg STK-MED ONCE IV ; Start 12/28/17 at 16:56; Stop 12/28/17 at 16:57; Status DC Fentanyl Citrate (Fentanyl 2ml Vial) 100 mcg STK-MED ONCE .ROUTE ; Start at 16:58; Stop 12/28/17 at 16:59; Status DC Midazolam HCl (Versed) 2 mg STK-MED ONCE .ROUTE ; Start 12/28/17 at 16:58; Stop 12/28/17 at 16:59; Status DC Cefazolin Sodium/ Dextrose 50 ml @ 100 mls/hr 1X PERIOP IV Last administered on 12/28/17at 18:23; Start 12/28/17 at 17:00; Stop 12/28/17 at 23:59; Status DC Bupivacaine HCl/ Epinephrine Bitart (Marcaine-Epi 0.5%-[id number]) 50 ml STK-MED ONCE .ROUTE ; Start 12/28/17 at 16:44; Stop 12/28/17 at 17:45; Status DC Glycopyrrolate (Robinul) 1 mg STK-MED ONCE .ROUTE ; Start 12/28/17 at 18:18; Stop 12/28/17 at 18:19; Status DC Neostigmine Methylsulfate (Neostigmine Methylsulfate) 5 mg STK-MED ONCE .ROUTE ; Start 12/28/17 at 18:18; Stop 12/28/17 at 18:19; Status DC Fentanyl Citrate (Fentanyl 2ml Vial) 100 mcg STK-MED ONCE .ROUTE ; Start at 18:18; Stop 12/28/17 at 18:19; Status DC Rocuronium [place] (Zemuron) 50 mg STK-MED ONCE .ROUTE ; Start 12/28/17 at 19:31 ; Stop 12/28/17 at 19:32; Status DC Propofol 20 ml @ As Directed STK-MED ONCE IV ; Start 12/28/17 at 19:33; Stop at 19:34; Status DC Albumin Human 500 ml @ As Directed STK-MED ONCE IV ; Start 12/28/17 at 20:27; Stop 12/28/17 at 20:28; Status DC Enoxaparin Sodium (Lovenox 40mg Syringe) 40 mg Q24H SQ Last administered on at 21:22; Start 12/28/17 at 21:00 Sodium Chloride (Normal Saline Flush) 3 ml QSHIFT PRN IV AFTER MEDS AND BLOOD DRAWS; Start 12/28/17 at 21:00 Ringer's Solution 1,000 ml @ 100 mls/hr Q10H IV Last administered on at 21:27; Start 12/28/17 at 21:00; Stop 12/28/17 at 23:53; Status DC Naloxone HCl (Narcan) 0.4 mg PRN Q2MIN PRN IV SEE INSTRUCTIONS; Start 12/28/17 at 21:00 Sodium Chloride 1,000 ml @ 25 mls/hr Q24H IV ; Start 12/28/17 at 21:00; Stop at 21:01; Status DC Morphine Sulfate 30 ml @ 0 mls/hr CONT PRN PRN IV PER PROTOCOL Last administered on 01/01/18at 02:11; Start 12/28/17 at 21:00 Docusate Sodium (Colace) 100 mg BID PO Last administered on 01/01/18at 09:31; Start 12/28/17 at 21:00 Ondansetron HCl (Zofran) 4 mg PRN Q6HRS PRN IV NAUESA, 1ST CHOICE; Start at 21:00 Fentanyl Citrate (Fentanyl 2ml Vial) 100 mcg STK-MED ONCE .ROUTE ; Start at 21:09; Stop 12/28/17 at 21:10; Status DC Ondansetron HCl (Zofran) 4 mg PRN Q6HRS PRN IV NAUSEA/VOMITING; Start 12/28/17 at 21:45; Stop 12/29/17 at 21:44; Status DC Fentanyl Citrate (Fentanyl 2ml Vial) 25 mcg PRN Q5MIN PRN IV MILD PAIN; Start 12/28/17 at 21:45; Stop 12/29/17 at 21:44; Status DC Fentanyl Citrate (Fentanyl 2ml Vial) 50 mcg PRN Q5MIN PRN IV MODERATE TO SEVERE PAIN Last administered on 12/28/17at 22:04; Start 12/28/17 at 21:45; Stop 12/29/17 at 21:44; Status DC Morphine Sulfate (Morphine Sulfate) 1 mg PRN Q10MIN PRN IV SEVERE PAIN; Start 12/28/17 at 21:45; Stop 12/29/17 at 21:44; Status DC Ringer's Solution 1,000 ml @ 30 mls/hr Q24H IV Last administered on 12/28/17at 22:35; Start 12/28/17 at 21:31; Stop 12/29/17 at 09:30; Status DC Lidocaine HCl (Xylocaine-Mpf 1% 2ml Vial) 2 ml PRN 1X PRN ID PRIOR TO IV START ; Start 12/28/17 at 21:45; Stop 12/29/17 at 21:44; Status DC Hydromorphone HCl (Dilaudid) 0.5 mg PRN Q10MIN PRN IV SEV PAIN, Second choice; Start 12/28/17 at 21:45; Stop 12/29/17 at 21:44; Status DC Prochlorperazine Edisylate (Compazine) 5 mg PACU PRN PRN IV NAUSEA, MRX1; Start 12/28/17 at 21:45; Stop 12/29/17 at 21:44; Status DC Throat Lozenges (Chloraseptic) 1 spray PRN Q2HR PRN PO SORE THROAT Last administered on 12/29/17at 21:42; Start 12/29/17 at 21:15 Guaifenesin (Mucinex) 600 mg BID PO Last administered on 01/01/18at 09:31; Start 12/31/17 at 12:00 Fluticasone Propionate (Flonase) 2 spray BID NS Last administered on 01/01/18at 09:31; Start 12/31/17 at 21:00 Benzonatate (Tessalon Perle) 100 mg PRN Q6HRS PRN PO COUGH 1ST CHOICE Last administered on 01/01/18at 09:31; Start 01/01/18 at 03:15 Active Scripts Active Reported Lisinopril-Hctz 20-25 Mg Tab (Lisinopril/Hydrochlorothiazide) 1 Each Tablet 1 Tab PO DAILY Zolpidem Tartrate Er (Zolpidem Tartrate) 12.5 Mg Tab.mphase 1 Tab PO QHS Vitals/I & O Vital Sign - Last 24 Hours 12/31/17 12/31/17 12/31/17 12/31/17 11:00 15:00 19:00 20:30 Temp 98.9 98.2 99.0 98.9 98.2 99.0 Pulse 98 102 111 Resp 18 18 18 B/P (MAP) 128/78 (95) 116/77 (90) 111/81 (91) Pulse Ox 95 92 93 O2 Delivery Room Air Room Air Room Air Room Air 12/31/17 01/01/18 01/01/18 01/01/18 23:00 02:11 02:43 03:00 Temp 98.3 98.6 98.3 98.6 Pulse 101 101 Resp 18 B/P (MAP) 124/81 (95) 124/78 (93) Pulse Ox 96 94 O2 Delivery Room Air Room Air Room Air Room Air 01/01/18 07:47 Temp 98.5 98.5 Pulse 98 Resp 20 B/P (MAP) 124/81 (95) Pulse Ox 93 O2 Delivery Room Air SEBLE TORO MD Jan 01, 2018 10:42
[2018-01-01 11:00] VITALS: BP 122/67
--- NOTE | 2018-01-01 14:58 | PDOC ---
SURGICAL PROGRESS NOTE Subjective Pt without new c/o, no N/V, passing flatus. Vital Signs Vital Signs Date Time Temp Pulse Resp B/P (MAP) Pulse Ox O2 Delivery O2 Flow Rate FiO2 01/01/18 11:00 98.7 16 122/67 (85) 95 Room Air 98.7 01/01/18 07:47 98 General: Alert, Oriented X3, Cooperative Abdomen: Soft, No tenderness, Other (incision c/d/i, some associated seroma) Labs Laboratory Tests Test 12/31/17 04:26 01/01/18 06:30 White Blood Count 10.3 x10^3/uL (4.0-11.0) 9.9 x10^3/uL (4.0-11.0) Red Blood Count 4.23 x10^6/uL (4.30-5.70) 4.22 x10^6/uL (4.30-5.70) Hemoglobin 12.8 g/dL (13.0-17.5) 12.7 g/dL (13.0-17.5) Hematocrit 37.1 % (39.0-53.0) 36.8 % (39.0-53.0) Mean Corpuscular Volume 88 fL (79-100) 87 fL (79-100) Mean Corpuscular Hemoglobin 30 pg (25-35) 30 pg (25-35) Mean Corpuscular Hemoglobin Concent 35 g/dL (31-37) 35 g/dL (31-37) Red Cell Distribution Width 13.8 % (11.5-14.5) 13.5 % (11.5-14.5) Platelet Count 228 x10^3/uL (140-400) 296 x10^3/uL (140-400) Neutrophils (%) (Auto) 74 % (31-73) 68 % (31-73) Lymphocytes (%) (Auto) 11 % (24-48) 13 % (24-48) Monocytes (%) (Auto) 11 % (0-9) 12 % (0-9) Eosinophils (%) (Auto) 3 % (0-3) 6 % (0-3) Basophils (%) (Auto) 1 % (0-3) 1 % (0-3) Neutrophils # (Auto) 7.6 x10^3uL (1.8-7.7) 6.7 x10^3uL (1.8-7.7) Lymphocytes # (Auto) 1.2 x10^3/uL (1.0-4.8) 1.3 x10^3/uL (1.0-4.8) Monocytes # (Auto) 1.2 x10^3/uL (0.0-1.1) 1.2 x10^3/uL (0.0-1.1) Eosinophils # (Auto) 0.3 x10^3/uL (0.0-0.7) 0.6 x10^3/uL (0.0-0.7) Basophils # (Auto) 0.1 x10^3/uL (0.0-0.2) 0.1 x10^3/uL (0.0-0.2) Sodium Level 135 mmol/L (136-145) 134 mmol/L (136-145) Potassium Level 4.0 mmol/L (3.5-5.1) 4.0 mmol/L (3.5-5.1) Chloride Level 100 mmol/L (98-107) 99 mmol/L (98-107) Carbon Dioxide Level 29 mmol/L (21-32) 24 mmol/L (21-32) Anion Gap 6 (6-14) 11 (6-14) Blood Urea Nitrogen 8 mg/dL (8-26) 11 mg/dL (8-26) Creatinine 0.9 mg/dL (0.7-1.3) 0.8 mg/dL (0.7-1.3) Estimated GFR (Cockcroft-Gault) 86.7 99.3 Glucose Level 101 mg/dL (70-99) 109 mg/dL (70-99) Calcium Level 8.4 mg/dL (8.5-10.1) 8.6 mg/dL (8.5-10.1) BUN/Creatinine Ratio 14 (6-20) Total Bilirubin 0.9 mg/dL (0.2-1.0) Aspartate Amino Transf (AST/SGOT) 15 U/L (15-37) Alanine Aminotransferase (ALT/SGPT) 21 U/L (16-63) Alkaline Phosphatase 65 U/L (46-116) Total Protein 6.9 g/dL (6.4-8.2) Albumin 2.9 g/dL (3.4-5.0) Albumin/Globulin Ratio 0.7 (1.0-1.7) Laboratory Tests Test 01/01/18 06:30 White Blood Count 9.9 x10^3/uL (4.0-11.0) Red Blood Count 4.22 x10^6/uL (4.30-5.70) Hemoglobin 12.7 g/dL (13.0-17.5) Hematocrit 36.8 % (39.0-53.0) Mean Corpuscular Volume 87 fL (79-100) Mean Corpuscular Hemoglobin 30 pg (25-35) Mean Corpuscular Hemoglobin Concent 35 g/dL (31-37) Red Cell Distribution Width 13.5 % (11.5-14.5) Platelet Count 296 x10^3/uL (140-400) Neutrophils (%) (Auto) 68 % (31-73) Lymphocytes (%) (Auto) 13 % (24-48) Monocytes (%) (Auto) 12 % (0-9) Eosinophils (%) (Auto) 6 % (0-3) Basophils (%) (Auto) 1 % (0-3) Neutrophils # (Auto) 6.7 x10^3uL (1.8-7.7) Lymphocytes # (Auto) 1.3 x10^3/uL (1.0-4.8) Monocytes # (Auto) 1.2 x10^3/uL (0.0-1.1) Eosinophils # (Auto) 0.6 x10^3/uL (0.0-0.7) Basophils # (Auto) 0.1 x10^3/uL (0.0-0.2) Sodium Level 134 mmol/L (136-145) Potassium Level 4.0 mmol/L (3.5-5.1) Chloride Level 99 mmol/L (98-107) Carbon Dioxide Level 24 mmol/L (21-32) Anion Gap 11 (6-14) Blood Urea Nitrogen 11 mg/dL (8-26) Creatinine 0.8 mg/dL (0.7-1.3) Estimated GFR (Cockcroft-Gault) 99.3 BUN/Creatinine Ratio 14 (6-20) Glucose Level 109 mg/dL (70-99) Calcium Level 8.6 mg/dL (8.5-10.1) Total Bilirubin 0.9 mg/dL (0.2-1.0) Aspartate Amino Transf (AST/SGOT) 15 U/L (15-37) Alanine Aminotransferase (ALT/SGPT) 21 U/L (16-63) Alkaline Phosphatase 65 U/L (46-116) Total Protein 6.9 g/dL (6.4-8.2) Albumin 2.9 g/dL (3.4-5.0) Albumin/Globulin Ratio 0.7 (1.0-1.7) Problem List s/p hernia repair ADAT doing well IVONNE LICONA MD Jan 01, 2018 14:58
[2018-01-01 15:00] VITALS: BP 106/79
[2018-01-01 19:10] VITALS: BP 118/66
[2018-01-01] MEDS: ENOXAPARIN 40 MG/0.4 ML SYRINGE. SQ SCH (20:23)
[2018-01-01 23:15] VITALS: BP 129/84
[2018-01-02] MEDS: ZOLPIDEM 5 MG TABLET. PO PRN (02:05)
[2018-01-02 03:15] VITALS: BP 92/58
[2018-01-02] MEDS: POTASSIUM CL 40MEQ D5-0.45NACL 1,000 ML IV SCH ×3 (03:22→23:51)
[2018-01-02 04:28] LABS: BASO # 0.1 x10^3/uL (0.0-0.2); BASO % 1 % (0-3); EOS # 0.6 x10^3/uL (0.0-0.7); EOS % 7 % (0-3); HEMATOCRIT 35.9 % (39.0-53.0); HEMOGLOBIN 12.4 g/dL (13.0-17.5); LYMPH # 1.6 x10^3/uL (1.0-4.8); LYMPH % 18 % (24-48); MEAN CORPUSCULAR HEMOGLOBIN 30 pg (25-35); MEAN CORPUSCULAR HGB CONC 35 g/dL (31-37); MEAN CORPUSCULAR VOLUME 87 fL (79-100); MONO # 0.9 x10^3/uL (0.0-1.1); MONO % 10 % (0-9); NEUT # 5.8 x10^3uL (1.8-7.7); NEUT % 64 % (31-73); PLATELET COUNT 291 x10^3/uL (140-400); RED BLOOD COUNT 4.13 x10^6/uL (4.30-5.70); RED CELL DISTRIBUTION WIDTH 13.5 % (11.5-14.5); WHITE BLOOD COUNT 9.1 x10^3/uL (4.0-11.0)
[2018-01-02 05:15] LABS: CREATININE 0.8 mg/dL (0.7-1.3); GFR 99.3; POTASSIUM 3.8 mmol/L (3.5-5.1)
[2018-01-02 07:00] VITALS: BP 128/84
[2018-01-02] MEDS: DOCUSATE SODIUM 100 MG CAPSULE. PO SCH ×2 (07:53→20:19)
[2018-01-02] MEDS: FLUTICASONE 50MCG/NASAL SPRAY 16GM BOTTLE. NS SCH ×2 (07:54→20:18)
[2018-01-02] MEDS: PANTOPRAZOLE IV PUSH 40 MG VIAL. IVP SCH (07:54)
[2018-01-02] MEDS ORDERED: oxyCODONE/APAP 5/325 1 TAB TABLET PO PRN (09:00)
--- NOTE | 2018-01-02 09:00 | PDOC ---
SURGICAL PROGRESS NOTE Subjective tolerating diet some cramping pain, gas pains + flatus and stool yesterday swelling to abdomen Vital Signs Vital Signs Date Time Temp Pulse Resp B/P (MAP) Pulse Ox O2 Delivery O2 Flow Rate FiO2 01/02/18 07:00 98.2 91 18 128/84 (99) 92 Room Air 98.2 I&O Intake and Output 01/02/18 07:00 Intake Total 1240 ml Output Total 350 ml Balance 890 ml Intake Oral 240 ml IV Total 1000 ml Output Urine Total 350 ml # Bowel Movements 1 General: Alert, Oriented X3, Cooperative, No acute distress Abdomen: Soft, Other (incision c/d/i, no erythema, nd) Labs Laboratory Tests Test 01/01/18 06:30 01/02/18 03:35 White Blood Count 9.9 x10^3/uL (4.0-11.0) 9.1 x10^3/uL (4.0-11.0) Red Blood Count 4.22 x10^6/uL (4.30-5.70) 4.13 x10^6/uL (4.30-5.70) Hemoglobin 12.7 g/dL (13.0-17.5) 12.4 g/dL (13.0-17.5) Hematocrit 36.8 % (39.0-53.0) 35.9 % (39.0-53.0) Mean Corpuscular Volume 87 fL (79-100) 87 fL (79-100) Mean Corpuscular Hemoglobin 30 pg (25-35) 30 pg (25-35) Mean Corpuscular Hemoglobin Concent 35 g/dL (31-37) 35 g/dL (31-37) Red Cell Distribution Width 13.5 % (11.5-14.5) 13.5 % (11.5-14.5) Platelet Count 296 x10^3/uL (140-400) 291 x10^3/uL (140-400) Neutrophils (%) (Auto) 68 % (31-73) 64 % (31-73) Lymphocytes (%) (Auto) 13 % (24-48) 18 % (24-48) Monocytes (%) (Auto) 12 % (0-9) 10 % (0-9) Eosinophils (%) (Auto) 6 % (0-3) 7 % (0-3) Basophils (%) (Auto) 1 % (0-3) 1 % (0-3) Neutrophils # (Auto) 6.7 x10^3uL (1.8-7.7) 5.8 x10^3uL (1.8-7.7) Lymphocytes # (Auto) 1.3 x10^3/uL (1.0-4.8) 1.6 x10^3/uL (1.0-4.8) Monocytes # (Auto) 1.2 x10^3/uL (0.0-1.1) 0.9 x10^3/uL (0.0-1.1) Eosinophils # (Auto) 0.6 x10^3/uL (0.0-0.7) 0.6 x10^3/uL (0.0-0.7) Basophils # (Auto) 0.1 x10^3/uL (0.0-0.2) 0.1 x10^3/uL (0.0-0.2) Sodium Level 134 mmol/L (136-145) 137 mmol/L (136-145) Potassium Level 4.0 mmol/L (3.5-5.1) 3.8 mmol/L (3.5-5.1) Chloride Level 99 mmol/L (98-107) 102 mmol/L (98-107) Carbon Dioxide Level 24 mmol/L (21-32) 24 mmol/L (21-32) Anion Gap 11 (6-14) 11 (6-14) Blood Urea Nitrogen 11 mg/dL (8-26) 8 mg/dL (8-26) Creatinine 0.8 mg/dL (0.7-1.3) 0.8 mg/dL (0.7-1.3) Estimated GFR (Cockcroft-Gault) 99.3 99.3 BUN/Creatinine Ratio 14 (6-20) Glucose Level 109 mg/dL (70-99) 111 mg/dL (70-99) Calcium Level 8.6 mg/dL (8.5-10.1) 8.0 mg/dL (8.5-10.1) Total Bilirubin 0.9 mg/dL (0.2-1.0) Aspartate Amino Transf (AST/SGOT) 15 U/L (15-37) Alanine Aminotransferase (ALT/SGPT) 21 U/L (16-63) Alkaline Phosphatase 65 U/L (46-116) Total Protein 6.9 g/dL (6.4-8.2) Albumin 2.9 g/dL (3.4-5.0) Albumin/Globulin Ratio 0.7 (1.0-1.7) Laboratory Tests Test 01/02/18 03:35 White Blood Count 9.1 x10^3/uL (4.0-11.0) Red Blood Count 4.13 x10^6/uL (4.30-5.70) Hemoglobin 12.4 g/dL (13.0-17.5) Hematocrit 35.9 % (39.0-53.0) Mean Corpuscular Volume 87 fL (79-100) Mean Corpuscular Hemoglobin 30 pg (25-35) Mean Corpuscular Hemoglobin Concent 35 g/dL (31-37) Red Cell Distribution Width 13.5 % (11.5-14.5) Platelet Count 291 x10^3/uL (140-400) Neutrophils (%) (Auto) 64 % (31-73) Lymphocytes (%) (Auto) 18 % (24-48) Monocytes (%) (Auto) 10 % (0-9) Eosinophils (%) (Auto) 7 % (0-3) Basophils (%) (Auto) 1 % (0-3) Neutrophils # (Auto) 5.8 x10^3uL (1.8-7.7) Lymphocytes # (Auto) 1.6 x10^3/uL (1.0-4.8) Monocytes # (Auto) 0.9 x10^3/uL (0.0-1.1) Eosinophils # (Auto) 0.6 x10^3/uL (0.0-0.7) Basophils # (Auto) 0.1 x10^3/uL (0.0-0.2) Sodium Level 137 mmol/L (136-145) Potassium Level 3.8 mmol/L (3.5-5.1) Chloride Level 102 mmol/L (98-107) Carbon Dioxide Level 24 mmol/L (21-32) Anion Gap 11 (6-14) Blood Urea Nitrogen 8 mg/dL (8-26) Creatinine 0.8 mg/dL (0.7-1.3) Estimated GFR (Cockcroft-Gault) 99.3 Glucose Level 111 mg/dL (70-99) Calcium Level 8.0 mg/dL (8.5-10.1) Assessment/Plan s/p VIH binder when up, no lifting, 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
--- NOTE | 2018-01-02 10:26 | PDOC ---
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 seen and examined Pt. alert and oriented; good affect VSS NG tube clamped Ventral dressing clean, dry and intact Pt. on COMBO WELDER , pt still use it often no flatus, no BM post op has mild nausea Vitals Vitals Vital Signs Date Time Temp Pulse Resp B/P (MAP) Pulse Ox O2 Delivery O2 Flow Rate FiO2 01/02/18 07:00 98.2 91 18 128/84 (99) 92 Room Air 98.2 Physical Exam General: Alert, Oriented X3, Cooperative, No acute distress Heart: Regular rate, Normal S1, Normal S2, No murmurs Lungs: Clear Abdomen: Soft, Other (incision c/d/i, no erythema, nd) Extremities: No clubbing, No cyanosis Skin: No rashes, No breakdown Labs LABS Laboratory Tests Test 01/02/18 03:35 White Blood Count 9.1 x10^3/uL (4.0-11.0) Red Blood Count 4.13 x10^6/uL (4.30-5.70) Hemoglobin 12.4 g/dL (13.0-17.5) Hematocrit 35.9 % (39.0-53.0) Mean Corpuscular Volume 87 fL (79-100) Mean Corpuscular Hemoglobin 30 pg (25-35) Mean Corpuscular Hemoglobin Concent 35 g/dL (31-37) Red Cell Distribution Width 13.5 % (11.5-14.5) Platelet Count 291 x10^3/uL (140-400) Neutrophils (%) (Auto) 64 % (31-73) Lymphocytes (%) (Auto) 18 % (24-48) Monocytes (%) (Auto) 10 % (0-9) Eosinophils (%) (Auto) 7 % (0-3) Basophils (%) (Auto) 1 % (0-3) Neutrophils # (Auto) 5.8 x10^3uL (1.8-7.7) Lymphocytes # (Auto) 1.6 x10^3/uL (1.0-4.8) Monocytes # (Auto) 0.9 x10^3/uL (0.0-1.1) Eosinophils # (Auto) 0.6 x10^3/uL (0.0-0.7) Basophils # (Auto) 0.1 x10^3/uL (0.0-0.2) Sodium Level 137 mmol/L (136-145) Potassium Level 3.8 mmol/L (3.5-5.1) Chloride Level 102 mmol/L (98-107) Carbon Dioxide Level 24 mmol/L (21-32) Anion Gap 11 (6-14) Blood Urea Nitrogen 8 mg/dL (8-26) Creatinine 0.8 mg/dL (0.7-1.3) Estimated GFR (Cockcroft-Gault) 99.3 Glucose Level 111 mg/dL (70-99) Calcium Level 8.0 mg/dL (8.5-10.1) Comment Review of Relevant I have reviewed the following items henna (where applicable) has been applied. Labs Laboratory Tests Test 01/01/18 06:30 01/02/18 03:35 White Blood Count 9.9 x10^3/uL (4.0-11.0) 9.1 x10^3/uL (4.0-11.0) Red Blood Count 4.22 x10^6/uL (4.30-5.70) 4.13 x10^6/uL (4.30-5.70) Hemoglobin 12.7 g/dL (13.0-17.5) 12.4 g/dL (13.0-17.5) Hematocrit 36.8 % (39.0-53.0) 35.9 % (39.0-53.0) Mean Corpuscular Volume 87 fL (79-100) 87 fL (79-100) Mean Corpuscular Hemoglobin 30 pg (25-35) 30 pg (25-35) Mean Corpuscular Hemoglobin Concent 35 g/dL (31-37) 35 g/dL (31-37) Red Cell Distribution Width 13.5 % (11.5-14.5) 13.5 % (11.5-14.5) Platelet Count 296 x10^3/uL (140-400) 291 x10^3/uL (140-400) Neutrophils (%) (Auto) 68 % (31-73) 64 % (31-73) Lymphocytes (%) (Auto) 13 % (24-48) 18 % (24-48) Monocytes (%) (Auto) 12 % (0-9) 10 % (0-9) Eosinophils (%) (Auto) 6 % (0-3) 7 % (0-3) Basophils (%) (Auto) 1 % (0-3) 1 % (0-3) Neutrophils # (Auto) 6.7 x10^3uL (1.8-7.7) 5.8 x10^3uL (1.8-7.7) Lymphocytes # (Auto) 1.3 x10^3/uL (1.0-4.8) 1.6 x10^3/uL (1.0-4.8) Monocytes # (Auto) 1.2 x10^3/uL (0.0-1.1) 0.9 x10^3/uL (0.0-1.1) Eosinophils # (Auto) 0.6 x10^3/uL (0.0-0.7) 0.6 x10^3/uL (0.0-0.7) Basophils # (Auto) 0.1 x10^3/uL (0.0-0.2) 0.1 x10^3/uL (0.0-0.2) Sodium Level 134 mmol/L (136-145) 137 mmol/L (136-145) Potassium Level 4.0 mmol/L (3.5-5.1) 3.8 mmol/L (3.5-5.1) Chloride Level 99 mmol/L (98-107) 102 mmol/L (98-107) Carbon Dioxide Level 24 mmol/L (21-32) 24 mmol/L (21-32) Anion Gap 11 (6-14) 11 (6-14) Blood Urea Nitrogen 11 mg/dL (8-26) 8 mg/dL (8-26) Creatinine 0.8 mg/dL (0.7-1.3) 0.8 mg/dL (0.7-1.3) Estimated GFR (Cockcroft-Gault) 99.3 99.3 BUN/Creatinine Ratio 14 (6-20) Glucose Level 109 mg/dL (70-99) 111 mg/dL (70-99) Calcium Level 8.6 mg/dL (8.5-10.1) 8.0 mg/dL (8.5-10.1) Total Bilirubin 0.9 mg/dL (0.2-1.0) Aspartate Amino Transf (AST/SGOT) 15 U/L (15-37) Alanine Aminotransferase (ALT/SGPT) 21 U/L (16-63) Alkaline Phosphatase 65 U/L (46-116) Total Protein 6.9 g/dL (6.4-8.2) Albumin 2.9 g/dL (3.4-5.0) Albumin/Globulin Ratio 0.7 (1.0-1.7) Laboratory Tests Test 01/02/18 03:35 White Blood Count 9.1 x10^3/uL (4.0-11.0) Red Blood Count 4.13 x10^6/uL (4.30-5.70) Hemoglobin 12.4 g/dL (13.0-17.5) Hematocrit 35.9 % (39.0-53.0) Mean Corpuscular Volume 87 fL (79-100) Mean Corpuscular Hemoglobin 30 pg (25-35) Mean Corpuscular Hemoglobin Concent 35 g/dL (31-37) Red Cell Distribution Width 13.5 % (11.5-14.5) Platelet Count 291 x10^3/uL (140-400) Neutrophils (%) (Auto) 64 % (31-73) Lymphocytes (%) (Auto) 18 % (24-48) Monocytes (%) (Auto) 10 % (0-9) Eosinophils (%) (Auto) 7 % (0-3) Basophils (%) (Auto) 1 % (0-3) Neutrophils # (Auto) 5.8 x10^3uL (1.8-7.7) Lymphocytes # (Auto) 1.6 x10^3/uL (1.0-4.8) Monocytes # (Auto) 0.9 x10^3/uL (0.0-1.1) Eosinophils # (Auto) 0.6 x10^3/uL (0.0-0.7) Basophils # (Auto) 0.1 x10^3/uL (0.0-0.2) Sodium Level 137 mmol/L (136-145) Potassium Level 3.8 mmol/L (3.5-5.1) Chloride Level 102 mmol/L (98-107) Carbon Dioxide Level 24 mmol/L (21-32) Anion Gap 11 (6-14) Blood Urea Nitrogen 8 mg/dL (8-26) Creatinine 0.8 mg/dL (0.7-1.3) Estimated GFR (Cockcroft-Gault) 99.3 Glucose Level 111 mg/dL (70-99) Calcium Level 8.0 mg/dL (8.5-10.1) Medications Current Medications Potassium Chloride/Dextrose/ Sod Cl 1,000 ml @ 100 mls/hr Q10H IV Last administered on 01/02/18at 03:22; Start 12/27/17 at 17:30 Ondansetron HCl (Zofran) 4 mg PRN Q6HRS PRN IV NAUSEA/VOMITING, 1ST CHOICE Last administered on 12/28/17at 09:04; Start 12/27/17 at 17:15; Stop 12/28/17 at 21:00; Status DC Prochlorperazine Edisylate (Compazine) 10 mg PRN Q6HRS PRN IV NAUSEA/VOMITING, 2ND CHOICE Last administered on 12/30/17at 01:32; Start 12/27/17 at 17:15 Calcium Carbonate/ Glycine (Tums) 500 mg PRN Q3HRS PRN PO UPSET STOMACH; Start 12/27/17 at 17:15 Zolpidem Tartrate (Ambien) 5 mg PRN QHS PRN PO INSOMNIA, MAY REPEAT IN 1HR Last administered on 01/02/18at 02:05; Start 12/27/17 at 17:15 Oxycodone HCl (Roxicodone) 5 mg PRN Q3HRS PRN PO BREAKTHROUGH PAIN Last administered on 12/27/17at 23:52; Start 12/27/17 at 17:15 Morphine Sulfate (Morphine Sulfate) 2 mg PRN Q2HR PRN IV MODERATE PAIN Last administered on 12/28/17at 08:44; Start 12/27/17 at 17:15; Stop 12/28/17 at 21:00 ; Status DC Acetaminophen (Tylenol) 650 mg PRN Q6HRS PRN PO Headaches, Temp > 101.5F; Start 12/27/17 at 17:15 Pantoprazole Sodium (PROTONIX VIAL for IV PUSH) 40 mg DAILYAC IVP Last administered on 01/02/18at 07:54; Start 12/27/17 at 18:00 Fentanyl Citrate (Fentanyl 2ml Vial) 50 mcg PRN Q2HR PRN IV SEVERE PAIN Last administered on 12/27/17at 18:16; Start 12/27/17 at 17:15; Stop 12/28/17 at 21:01 ; Status DC Succinylcholine Chloride (Anectine) 200 mg STK-MED ONCE .ROUTE ; Start 12/28/17 at 16:55; Stop 12/28/17 at 16:56; Status DC Rocuronium Randleman (Zemuron) 50 mg STK-MED ONCE .ROUTE ; Start 12/28/17 at 16:55 ; Stop 12/28/17 at 16:56; Status DC Dexamethasone Sodium Phosphate (Decadron) 20 mg STK-MED ONCE .ROUTE ; Start at 16:56; Stop 12/28/17 at 16:57; Status DC Ondansetron HCl (Zofran) 4 mg STK-MED ONCE .ROUTE ; Start 12/28/17 at 16:56; Stop 12/28/17 at 16:57; Status DC Phenylephrine HCl (PHENYLEPHRINE in 0.9% NACL PF) 1 mg STK-MED ONCE IV ; Start 12/28/17 at 16:56; Stop 12/28/17 at 16:57; Status DC Ephedrine Sulfate (ePHEDrine PF IN SALINE SYRINGE) 50 mg STK-MED ONCE IV ; Start 12/28/17 at 16:56; Stop 12/28/17 at 16:57; Status DC Fentanyl Citrate (Fentanyl 2ml Vial) 100 mcg STK-MED ONCE .ROUTE ; Start at 16:58; Stop 12/28/17 at 16:59; Status DC Midazolam HCl (Versed) 2 mg STK-MED ONCE .ROUTE ; Start 12/28/17 at 16:58; Stop 12/28/17 at 16:59; Status DC Cefazolin Sodium/ Dextrose 50 ml @ 100 mls/hr 1X PERIOP IV Last administered on 12/28/17at 18:23; Start 12/28/17 at 17:00; Stop 12/28/17 at 23:59; Status DC Bupivacaine HCl/ Epinephrine Bitart (Marcaine-Epi 0.5%-1:[id number]) 50 ml STK-MED ONCE .ROUTE ; Start 12/28/17 at 16:44; Stop 12/28/17 at 17:45; Status DC Glycopyrrolate (Robinul) 1 mg STK-MED ONCE .ROUTE ; Start 12/28/17 at 18:18; Stop 12/28/17 at 18:19; Status DC Neostigmine Methylsulfate (Neostigmine Methylsulfate) 5 mg STK-MED ONCE .ROUTE ; Start 12/28/17 at 18:18; Stop 12/28/17 at 18:19; Status DC Fentanyl Citrate (Fentanyl 2ml Vial) 100 mcg STK-MED ONCE .ROUTE ; Start at 18:18; Stop 12/28/17 at 18:19; Status DC Rocuronium Randleman (Zemuron) 50 mg STK-MED ONCE .ROUTE ; Start 12/28/17 at 19:31 ; Stop 12/28/17 at 19:32; Status DC Propofol 20 ml @ As Directed STK-MED ONCE IV ; Start 12/28/17 at 19:33; Stop at 19:34; Status DC Albumin Human 500 ml @ As Directed STK-MED ONCE IV ; Start 12/28/17 at 20:27; Stop 12/28/17 at 20:28; Status DC Enoxaparin Sodium (Lovenox 40mg Syringe) 40 mg Q24H SQ Last administered on at 20:23; Start 12/28/17 at 21:00 Sodium Chloride (Normal Saline Flush) 3 ml QSHIFT PRN IV AFTER MEDS AND BLOOD DRAWS; Start 12/28/17 at 21:00 Ringer's Solution 1,000 ml @ 100 mls/hr Q10H IV Last administered on at 21:27; Start 12/28/17 at 21:00; Stop 12/28/17 at 23:53; Status DC Naloxone HCl (Narcan) 0.4 mg PRN Q2MIN PRN IV SEE INSTRUCTIONS; Start 12/28/17 at 21:00 Sodium Chloride 1,000 ml @ 25 mls/hr Q24H IV ; Start 12/28/17 at 21:00; Stop at 21:01; Status DC Morphine Sulfate 30 ml @ 0 mls/hr CONT PRN PRN IV PER PROTOCOL Last administered on 01/01/18at 02:11; Start 12/28/17 at 21:00; Stop 01/02/18 at 08:59 ; Status DC Docusate Sodium (Colace) 100 mg BID PO Last administered on 01/02/18at 07:53; Start 12/28/17 at 21:00 Ondansetron HCl (Zofran) 4 mg PRN Q6HRS PRN IV NAUESA, 1ST CHOICE; Start at 21:00 Fentanyl Citrate (Fentanyl 2ml Vial) 100 mcg STK-MED ONCE .ROUTE ; Start at 21:09; Stop 12/28/17 at 21:10; Status DC Ondansetron HCl (Zofran) 4 mg PRN Q6HRS PRN IV NAUSEA/VOMITING; Start 12/28/17 at 21:45; Stop 12/29/17 at 21:44; Status DC Fentanyl Citrate (Fentanyl 2ml Vial) 25 mcg PRN Q5MIN PRN IV MILD PAIN; Start 12/28/17 at 21:45; Stop 12/29/17 at 21:44; Status DC Fentanyl Citrate (Fentanyl 2ml Vial) 50 mcg PRN Q5MIN PRN IV MODERATE TO SEVERE PAIN Last administered on 12/28/17at 22:04; Start 12/28/17 at 21:45; Stop 12/29/17 at 21:44; Status DC Morphine Sulfate (Morphine Sulfate) 1 mg PRN Q10MIN PRN IV SEVERE PAIN; Start 12/28/17 at 21:45; Stop 12/29/17 at 21:44; Status DC Ringer's Solution 1,000 ml @ 30 mls/hr Q24H IV Last administered on 12/28/17at 22:35; Start 12/28/17 at 21:31; Stop 12/29/17 at 09:30; Status DC Lidocaine HCl (Xylocaine-Mpf 1% 2ml Vial) 2 ml PRN 1X PRN ID PRIOR TO IV START ; Start 12/28/17 at 21:45; Stop 12/29/17 at 21:44; Status DC Hydromorphone HCl (Dilaudid) 0.5 mg PRN Q10MIN PRN IV SEV PAIN, Second choice; Start 12/28/17 at 21:45; Stop 12/29/17 at 21:44; Status DC Prochlorperazine Edisylate (Compazine) 5 mg PACU PRN PRN IV NAUSEA, MRX1; Start 12/28/17 at 21:45; Stop 12/29/17 at 21:44; Status DC Throat Lozenges (Chloraseptic) 1 spray PRN Q2HR PRN PO SORE THROAT Last administered on 12/29/17at 21:42; Start 12/29/17 at 21:15 Guaifenesin (Mucinex) 600 mg BID PO Last administered on 01/02/18at 07:53; Start 12/31/17 at 12:00 Fluticasone Propionate (Flonase) 2 spray BID NS Last administered on 01/02/18at 07:54; Start 12/31/17 at 21:00 Benzonatate (Tessalon Perle) 100 mg PRN Q6HRS PRN PO COUGH 1ST CHOICE Last administered on 01/01/18at 09:31; Start 01/01/18 at 03:15 Oxycodone/ Acetaminophen (Percocet 5/325) 1 tab PRN Q4HRS PRN PO MODERATE TO SEVERE PAIN; Start 01/02/18 at 09:00 Active Scripts Active Reported Lisinopril-Hctz 20-25 Mg Tab (Lisinopril/Hydrochlorothiazide) 1 Each Tablet 1 Tab PO DAILY Zolpidem Tartrate Er (Zolpidem Tartrate) 12.5 Mg Tab.mphase 1 Tab PO QHS Vitals/I & O Vital Sign - Last 24 Hours 01/01/18 01/01/18 01/01/18 01/01/18 10:44 11:00 15:00 19:10 Temp 98.7 98.1 98.0 98.7 98.1 98.0 Pulse 56 96 Resp 16 16 18 B/P (MAP) 122/67 (85) 106/79 (88) 118/66 (83) Pulse Ox 95 100 95 O2 Delivery Room Air Room Air Room Air Room Air 01/01/18 01/02/18 01/02/18 23:15 03:15 07:00 Temp 98.1 98.4 98.2 98.1 98.4 98.2 Pulse 97 78 91 Resp 18 B/P (MAP) 129/84 (99) 92/58 (69) 128/84 (99) Pulse Ox 93 95 92 O2 Delivery Room Air Room Air Room Air Intake and Output 01/01/18 01/01/18 01/02/18 15:00 23:00 07:00 Intake Total 1240 ml Output Total 350 ml Balance 890 ml SEBLE TORO MD Jan 02, 2018 10:26
[2018-01-02 11:00] VITALS: BP 114/77
[2018-01-02] MEDS: oxyCODONE IR 5 MG TABLET PO PRN ×2 (11:50→20:19)
[2018-01-02 15:00] VITALS: BP 113/78
[2018-01-02] MEDS ORDERED: ZOLPIDEM 5 MG TABLET. PO PRN (18:30)
[2018-01-02 19:00] VITALS: BP 119/73
[2018-01-02] MEDS: ENOXAPARIN 40 MG/0.4 ML SYRINGE. SQ SCH (20:20)
[2018-01-02 23:00] VITALS: BP 115/77
[2018-01-03 04:52] LABS: BASO # 0.1 x10^3/uL (0.0-0.2); BASO % 1 % (0-3); EOS # 0.5 x10^3/uL (0.0-0.7); EOS % 7 % (0-3); HEMATOCRIT 33.8 % (39.0-53.0); HEMOGLOBIN 11.8 g/dL (13.0-17.5); LYMPH # 1.6 x10^3/uL (1.0-4.8); LYMPH % 22 % (24-48); MEAN CORPUSCULAR HEMOGLOBIN 30 pg (25-35); MEAN CORPUSCULAR HGB CONC 35 g/dL (31-37); MEAN CORPUSCULAR VOLUME 87 fL (79-100); MONO # 0.9 x10^3/uL (0.0-1.1); MONO % 12 % (0-9); NEUT # 4.4 x10^3uL (1.8-7.7); NEUT % 58 % (31-73); PLATELET COUNT 310 x10^3/uL (140-400); RED BLOOD COUNT 3.89 x10^6/uL (4.30-5.70); RED CELL DISTRIBUTION WIDTH 13.3 % (11.5-14.5); WHITE BLOOD COUNT 7.5 x10^3/uL (4.0-11.0)
[2018-01-03 05:54] LABS: CALCIUM 8.2 mg/dL (8.5-10.1); GFR 76.7; POTASSIUM 4.1 mmol/L (3.5-5.1)
[2018-01-03] MEDS: PANTOPRAZOLE IV PUSH 40 MG VIAL. IVP SCH (06:14)
[2018-01-03 07:00] VITALS: BP 113/52
--- NOTE | 2018-01-03 08:18 | PDOC ---
SURGICAL PROGRESS NOTE Subjective Pt without c/o, javier PO well, passing stools Vital Signs Vital Signs Date Time Temp Pulse Resp B/P (MAP) Pulse Ox O2 Delivery O2 Flow Rate FiO2 01/03/18 03:00 18 01/02/18 23:00 98.9 81 115/77 (90) 94 Room Air 98.9 I&O Intake and Output 01/03/18 07:00 Intake Total 2160 ml Balance 2160 ml Intake Oral 1160 ml IV Total 1000 ml # Voids 6 General: Alert, Oriented X3, Cooperative, No acute distress Abdomen: Soft, No tenderness, Other (incision c/d/i) Labs Laboratory Tests Test 01/02/18 03:35 01/03/18 04:25 White Blood Count 9.1 x10^3/uL (4.0-11.0) 7.5 x10^3/uL (4.0-11.0) Red Blood Count 4.13 x10^6/uL (4.30-5.70) 3.89 x10^6/uL (4.30-5.70) Hemoglobin 12.4 g/dL (13.0-17.5) 11.8 g/dL (13.0-17.5) Hematocrit 35.9 % (39.0-53.0) 33.8 % (39.0-53.0) Mean Corpuscular Volume 87 fL (79-100) 87 fL (79-100) Mean Corpuscular Hemoglobin 30 pg (25-35) 30 pg (25-35) Mean Corpuscular Hemoglobin Concent 35 g/dL (31-37) 35 g/dL (31-37) Red Cell Distribution Width 13.5 % (11.5-14.5) 13.3 % (11.5-14.5) Platelet Count 291 x10^3/uL (140-400) 310 x10^3/uL (140-400) Neutrophils (%) (Auto) 64 % (31-73) 58 % (31-73) Lymphocytes (%) (Auto) 18 % (24-48) 22 % (24-48) Monocytes (%) (Auto) 10 % (0-9) 12 % (0-9) Eosinophils (%) (Auto) 7 % (0-3) 7 % (0-3) Basophils (%) (Auto) 1 % (0-3) 1 % (0-3) Neutrophils # (Auto) 5.8 x10^3uL (1.8-7.7) 4.4 x10^3uL (1.8-7.7) Lymphocytes # (Auto) 1.6 x10^3/uL (1.0-4.8) 1.6 x10^3/uL (1.0-4.8) Monocytes # (Auto) 0.9 x10^3/uL (0.0-1.1) 0.9 x10^3/uL (0.0-1.1) Eosinophils # (Auto) 0.6 x10^3/uL (0.0-0.7) 0.5 x10^3/uL (0.0-0.7) Basophils # (Auto) 0.1 x10^3/uL (0.0-0.2) 0.1 x10^3/uL (0.0-0.2) Sodium Level 137 mmol/L (136-145) 138 mmol/L (136-145) Potassium Level 3.8 mmol/L (3.5-5.1) 4.1 mmol/L (3.5-5.1) Chloride Level 102 mmol/L (98-107) 103 mmol/L (98-107) Carbon Dioxide Level 24 mmol/L (21-32) 27 mmol/L (21-32) Anion Gap 11 (6-14) 8 (6-14) Blood Urea Nitrogen 8 mg/dL (8-26) 7 mg/dL (8-26) Creatinine 0.8 mg/dL (0.7-1.3) 1.0 mg/dL (0.7-1.3) Estimated GFR (Cockcroft-Gault) 99.3 76.7 Glucose Level 111 mg/dL (70-99) 120 mg/dL (70-99) Calcium Level 8.0 mg/dL (8.5-10.1) 8.2 mg/dL (8.5-10.1) Laboratory Tests Test 01/03/18 04:25 White Blood Count 7.5 x10^3/uL (4.0-11.0) Red Blood Count 3.89 x10^6/uL (4.30-5.70) Hemoglobin 11.8 g/dL (13.0-17.5) Hematocrit 33.8 % (39.0-53.0) Mean Corpuscular Volume 87 fL (79-100) Mean Corpuscular Hemoglobin 30 pg (25-35) Mean Corpuscular Hemoglobin Concent 35 g/dL (31-37) Red Cell Distribution Width 13.3 % (11.5-14.5) Platelet Count 310 x10^3/uL (140-400) Neutrophils (%) (Auto) 58 % (31-73) Lymphocytes (%) (Auto) 22 % (24-48) Monocytes (%) (Auto) 12 % (0-9) Eosinophils (%) (Auto) 7 % (0-3) Basophils (%) (Auto) 1 % (0-3) Neutrophils # (Auto) 4.4 x10^3uL (1.8-7.7) Lymphocytes # (Auto) 1.6 x10^3/uL (1.0-4.8) Monocytes # (Auto) 0.9 x10^3/uL (0.0-1.1) Eosinophils # (Auto) 0.5 x10^3/uL (0.0-0.7) Basophils # (Auto) 0.1 x10^3/uL (0.0-0.2) Sodium Level 138 mmol/L (136-145) Potassium Level 4.1 mmol/L (3.5-5.1) Chloride Level 103 mmol/L (98-107) Carbon Dioxide Level 27 mmol/L (21-32) Anion Gap 8 (6-14) Blood Urea Nitrogen 7 mg/dL (8-26) Creatinine 1.0 mg/dL (0.7-1.3) Estimated GFR (Cockcroft-Gault) 76.7 Glucose Level 120 mg/dL (70-99) Calcium Level 8.2 mg/dL (8.5-10.1) Problem List s/p VIH repair ADAT OK to d/c home f/u in 2 weeks IVONNE LICONA MD Jan 03, 2018 08:18
[2018-01-03] MEDS: DOCUSATE SODIUM 100 MG CAPSULE. PO SCH (08:40)
[2018-01-03] MEDS: FLUTICASONE 50MCG/NASAL SPRAY 16GM BOTTLE. NS SCH (08:42)
[2018-01-03] MEDS: oxyCODONE IR 5 MG TABLET PO PRN ×2 (08:42→12:43)
[2018-01-03] MEDS: POTASSIUM CL 40MEQ D5-0.45NACL 1,000 ML IV SCH (08:43)
[2018-01-03 11:00] VITALS: BP 134/91
[2018-01-03] MEDS ORDERED: OXYC5TAB95 PO (12:05)
--- NOTE | 2018-01-03 14:46 | PDOC3 ---
Discharge Summary [facility] Date of Admission: Dec 27, 2017 Discharge Date: Jan 03, 2018 Admitting Diagnosis Small bowel obstruction, obstructive hernia s/p extensive lysis of adhesions Bradley-León syndrome h/o Several abd. surgeries Sulfa allergy post op ileus mod protein-caloric malnutrition CONSULTS sx Brief Hospital Course Mr. Anderson is a 57 old M, comes for abd pain from [facility]. ct SHOED sbo. got sx, with extensive lysis of adhesion. Pt eats fine, had BM, still has abd cramps sometime. stable to dc home. dc time 35min. General: Alert, Oriented X3, Cooperative, No acute distress Heart: Regular rate, Normal S1, Normal S2, No murmurs Lungs: Clear Abdomen: Soft, Other (incision c/d/i, no erythema, nd) + bs. mild tenderness Extremities: No clubbing, No cyanosis Skin: No rashes, No breakdown Patient History: FH: CAD (coronary artery disease) G8 BROTHER FH: arthritis G8 BROTHER FH: kidney cancer G8 BROTHER FH: lung cancer 33 FATHER FHx: diabetes mellitus G8 SISTER Disposition home CONDITION AT DISCHARGE: Improved Scheduled Lisinopril/Hydrochlorothiazide (Lisinopril-Hctz 20-25 Mg Tab), 1 TAB PO DAILY, ( Reported) Zolpidem Tartrate (Zolpidem Tartrate Er), 1 TAB PO QHS, (Reported) Scheduled PRN Oxycodone Hcl (Oxycodone Hcl), 5 MG PO PRN Q3HRS PRN for BREAKTHROUGH PAIN BROOKE ASHLEY MD Jan 03, 2018 14:46
== END 2018-01-03 13:00 | disposition home or self-care (01) | DRG 336 ==
LOC: 4 NORTH 16:45
PROVIDERS: ADMIT Internal Medicine; ATTEND Internal Medicine
PROC: 0DN80ZZ Release Small Intestine, Open Approach (ICD-10-PCS; 2017-12-28)
PROC: 0WUF0JZ Supplement Abdominal Wall with Synthetic Substitute, Open Approach (ICD-10-PCS; principal; 2017-12-28 16:55)
DX: K43.0 Incisional hernia with obstruction, without gangrene (principal); E44.0 Moderate protein-calorie malnutrition; I10 Essential (primary) hypertension; K46.9 Unspecified abdominal hernia without obstruction or gangrene; K66.0 Peritoneal adhesions (postprocedural) (postinfection); Z83.3 Family history of diabetes mellitus; Z80.1 Family history of malignant neoplasm of trachea, bronchus and lung; Z82.49 Family history of ischemic heart disease and other diseases of the circulatory system; Z88.2 Allergy status to sulfonamides; Z90.49 Acquired absence of other specified parts of digestive tract; Z68.27 Body mass index [BMI] 27.0-27.9, adult; Z80.51 Family history of malignant neoplasm of kidney; Z82.61 Family history of arthritis; Z85.828 Personal history of other malignant neoplasm of skin
CPT/HCPCS: 36415; 74018; 80048; 80053; 85025; 85610; C1781; C9113; J0330; J0690; J0780; J1100; J1650; J2250; J2270; J2370; J2405; J2704; J2710; J3010; J3490; J7042; J7120; P9045

== ENCOUNTER → 2020-08-17 | Day surgery (SDC) | payer BC ==
[~2020-08-17] MED LIST: LIDOCAINE 1%/EPI 1:100,000 20 ML VIAL. INJ ONE; LIDOCAINE 1%/EPI 1:100,000 20 ML VIAL. ONE; LISI1TAB20 PO; OXYC5TAB4 PO; ZOLP12.56 PO
--- NOTE | 2020-08-17 12:20 | PDOC4 ---
Operative Note Operative Note Date: August 17, 2020 at 1218 Preoperative diagnosis: Right thigh mass Postoperative diagnosis: Same Procedure: Excision of right thigh mass Surgeon: Chu Specimen: Right thigh mass Dictation: Patient is 60-year-old gentleman complaining of a tender mass on his right thigh has been excised previously is returned in the last 6 months. Procedure of excision was explained to the patient detail risk-benefit were also discussed including bleeding infection alternatives this procedure also discussed with patient who seemed to understand and gave a verbal written consent to have the procedure performed. Patient was taken to the minors placed in supine position the area of the mass was prepped and draped usual sterile fashion using ChloraPrep. Area around the mass was injected with 1% lidocaine with epinephrine once the area was anesthetized and a incision was made with 15 blade scalpel the subcutaneous mass was excised sharply and sent for pathology. Mass size was 1 cm and the incision size was 2 cm in length. The wound was closed in a single layer 4-0 subcuticular Monocryl Mastisol Steri-Strips and island dressing was applied. Patient tolerated procedure well was discharged home in stable condition all sponge instrument needle counts listed as correct. SEBLE CHRISTIANSON MD August 17, 2020 12:20
--- NOTE | 2020-08-17 12:22 | DISCH ---
DISCHARGE INSTRUCTIONS Condition on Discharge Condition on Discharge: Stable Activity After Discharge Activity Instructions for Disc: Resume previous activity Diet after Discharge Diet after Discharge: Regular Liquid Texture: Thin Liquid Wound Incision Care Other wound/incision instructi: Elizabeth castro in 24-hour Contacting the after DC Call your doctor for: If your condition worsens Follow-Up Follow up with: Dr. Christianson in 2 weeks SEBLE CHRISTIANSON MD August 17, 2020 12:22
--- NOTE | 2020-08-23 12:59 | PDOC1 ---
History and Physical Date of Admission Date of Admission DATE: 08/17/20 TIME: 12:57 Identification/Chief Complaint Chief Complaint Right thigh mass Source Source: Patient History of Present Illness History of Present Illness 60-year-old male with complaints of a enlarging mass on his right thigh Past Medical History Cardiovascular: HTN Heme/Onc: Cancer Past Surgical History Past Surgical History: Colon Resection Family History Family History: Other Social History ALCOHOL: rare Drugs: None Current Medications Current Medications Current Medications Lidocaine/ Epinephrine (LIDOCAINE 1%-EPI 1:100,000 Multi-Dose) 20 ml STK-MED ONCE .ROUTE ; Start 08/17/20 at 11:32; Stop 08/17/20 at 11:32; Status DC Lidocaine/ Epinephrine (LIDOCAINE 1%-EPI 1:100,000 Multi-Dose) 20 ml STK-MED ONCE INJ Last administered on 08/17/20at 11:59; Start 08/17/20 at 11:59; Stop 08/17/20 at 11:59; Status DC Active Scripts Active Oxycodone Hcl 5 Mg Tablet 5 Mg PO PRN Q3HRS PRN Reported Lisinopril-Hctz 20-25 Mg Tab (Lisinopril/Hydrochlorothiazide) 1 Each Tablet 1 Tab PO DAILY Zolpidem Tartrate Er (Zolpidem Tartrate) 12.5 Mg Tab.mphase 1 Tab PO QHS Allergies Allergies: Coded Allergies: Sulfa (Sulfonamide Antibiotics) (Verified Allergy, Intermediate, Swelling, 08/17/20) TOPICAL ROS Skin: Yes Other (Subcutaneous mass right thigh) Physical Exam General: Alert, Oriented X3, Cooperative, No acute distress HEENT: Atraumatic, EOMI Lungs: Clear to auscultation, Normal air movement Heart: RRR, no murmurs Abdomen: Normal bowel sounds, Soft, No tenderness Skin: Other (3 cm subcutaneous mass right thigh) Neuro: Normal gait Psych/Mental Status: Mental status NL VTE Prophylaxis Ordered VTE Prophylaxis Devices: No VTE Pharmacological Prophylaxi: No Assessment/Plan Assessment/Plan Right thigh mass plan excision in minors Justifications for Admission Other Justification SEBLE CHRISTIANSON MD August 23, 2020 12:59
--- NOTE | 2020-08-24 17:13 | PATHOLOGY ---
[facility] Accession Number: [id number] . 01 Material submitted: . thigh - RIGHT THIGH MASS. Modifiers: right . 01 Clinical history: . EXCISION RIGHT THIGH MASS . . 01 Frozen section diagnosis: . . /QMS . 02 Diagnosis: Skin and subcutaneous tissue, right thigh mass, excision: - Organizing fat necrosis. (JPM:gracie; 08/24/2020) QMS 08/24/2020 1452 Local . 02 Comment: Sections of the right thigh mass excision reveal a fairly well demarcated nodule within the subcutaneous tissue. The nodule is composed of an admixture of numerous cells having foamy and vacuolated cytoplasm, fibroblasts, chronic inflammatory cells, and a few multinucleated giant cells. A properly controlled immunoperoxidase stain for CD68 (histocyte marker) is obtained on A1 and yields the following results: . CD68: Foamy and vacuolated cells positive, confirming their histiocytic nature. . 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 The case is also examined by Dr. Fuentes, who concurs with the diagnosis. (JPM:gracie; 08/24/2020) . . Special stain performed: Immunoperoxidase stain for CD68 . 02 Electronically signed: . Manny Arias MD, Pathologist NPI- [id number] . 01 Gross description: . Received in formalin labeled "Kale Kirby, right thigh mass" is a yellow-ortiz previously opened cystic structure measuring 1.5 x 1.4 x 1.0 cm with an attached ellipse of ortiz-white skin measuring 1.1 x 0.6 x 0.3 cm. Upon sectioning, the cyst contains yellow-ortiz amorphous material. The specimen is entirely submitted in A1. ([facility] [place]; 08/18/2020) [facility] 08/18/2020 1142 Local . 02 Microscopic: . . . 02 Pathologist provided ICD-10: I96 . 02 CPT . 666552, [id number] Specimen Comment: A courtesy copy of this report has been sent to [phone], [phone] Specimen Comment: [id number] Specimen Comment: Report sent to / DR VELA Performed at: 01 [facility] [address], [place] [id number] MD Danny Christy MD Phone: [phone] Performed at: 02 [facility] [address], [place] [id number] MD Manny Arias MD Phone: [phone]
== END | disposition home or self-care (01) ==
LOC: SURG 10:54
PROVIDERS: ATTEND Surgery
DX: R22.41 Localized swelling, mass and lump, right lower limb (principal); I96 Gangrene, not elsewhere classified; I10 Essential (primary) hypertension; M19.90 Unspecified osteoarthritis, unspecified site; Z79.899 Other long term (current) drug therapy; Z98.890 Other specified postprocedural states; Z88.2 Allergy status to sulfonamides; Z82.49 Family history of ischemic heart disease and other diseases of the circulatory system; Z20.822 Contact with and (suspected) exposure to COVID-19; Z83.3 Family history of diabetes mellitus
CPT/HCPCS: 11402; 87426; 88305; 88342; J3490; 11403